=== PATIENT | male | born 1975 | race Caucasian/White ===

== ENCOUNTER 2019-12-16 03:55 | Emergency (ER) | payer BC, SELFPAY ==
[2019-12-16] VITALS (9 sets, daily range): BP systolic 108–153; BP diastolic 71–87; PULSE 90–100; RESP 20–24; TEMP 36.6; O2SAT 95–98
--- NOTE | ~2019-12-16 | CT_ITS ---
EXAMINATION: CT chest high resolution w con DATE: 12/16/2019 06:55 INDICATION: evaluate for pneumonia TECHNIQUE: Computed tomography (CT) of the chest was performed without intravenous contrast. Addition al 3D reconstructions utilizing coronal maximum intensity projection (MIP) were performed. Automated exposure control and iterative reconstruction technique were employed. The dose-length product was 19 9.72 mGy-cm. COMPARISON: None FINDINGS: Reticular and groundglass opacities in both lungs with peripheral and lower lung predominance. Subple ural emphysema versus honeycombing along the anterior aspect of the bilateral upper lobes. No pleural effusion or pneumothorax. Heart size is normal. No pericardial effusion. Small sliding-type hiatal h ernia. Thoracic aorta is normal in caliber with no dissection. No pathologically enlarged azygos lymp hadenopathy. Visualized upper abdomen is unremarkable. Mild thoracic spondylosis. IMPRESSION: 1. Peripheral and lower lung predominant irregular reticular and groundglass opacities. In the acute setting this could represent pneumonia, pulmonary edema, asymmetric pneumonia or hypersensitivity pne umonitis. Differential would also include chronic interstitial fibrosis in either usual interstitial pneumonia (UIP) or nonspecific interstitial pneumonia (NSIP) pattern. 2. Mild subpleural cystic lung disease at the anterior bilateral upper lobes which could represent ei ther mild emphysema or honeycombing related to UIP. 3. Small sliding-type hiatal hernia. Reviewed, dictated and finalized at location A. IMPRESSION: 1. Peripheral and lower lung predominant irregular reticular and groundglass op acities. In the acute setting this could represent pneumonia, pulmonary edema, asymmetric pneumonia or hypersensitivity pneumonitis. Differential would also i nclude chronic interstitial fibrosis in either usual interstitial pneumonia (UI P) or nonspecific interstitial pneumonia (NSIP) pattern. 2. Mild subpleural cystic lung disease at the anterior bilateral upper lobes wh ich could represent either mild emphysema or honeycombing related to UIP. 3. Small sliding-type hiatal hernia.
--- NOTE | ~2019-12-16 | XR_ITS ---
EXAMINATION: XR chest 1V portable DATE: 12/16/2019 05:36 INDICATION: Cough and shortness of breath TECHNIQUE: frontal view of the chest was obtained. COMPARISON: Chest and left rib radiographs dated 05/02/2016 FINDINGS: Mild reticular opacities at the bilateral lung bases. Unchanged more focal airspace opacity lingula l ikely atelectasis/scarring. No pleural effusion or pneumothorax. The cardiomediastinal silhouette is normal. IMPRESSION: 1. Mild bibasilar opacities which could represent pulmonary edema, atelectasis or pneumonia. Reviewed, dictated and finalized at location A.
[2019-12-16] MEDS: methylPREDNISolone SOD SUCC 125 MG VIAL 80 MG IV PUSH (04:22)
[2019-12-16] MEDS: IPRATROPIUM 0.5 MG/ALBUTEROL SULFATE 2.5 MG AMPUL.NEB 3 ML INHALATION ×2 (04:23→04:59)
--- NOTE | 2019-12-16 04:36 | ECG_ITS ---
Measurements Intervals [place] Rate: 94 P: 20 [place]: 205 QRS: 19 QRSD: 107 T: 2 QT: 363 QTc: 454 Interpretive Statements SINUS RHYTHM WITH FIRST DEGREE AV BLOCK ABNORMAL ECG Electronically Signed On 12-16-2019 8:53:25 CDT by Fredy Webster D.O.
--- NOTE | 2019-12-16 04:46 | ED.ASTHMA ---
HPI - Asthma General Chief Complaint: Asthma Stated Complaint: Cough/Asthma Time Seen by Provider: 12/16/19 07:13 Source: patient Mode of arrival: ambulatory Limitations: no limitations History of Present Illness HPI Narrative: 43 y.o. male with hx. of asthma c/o cough and wheezing for the past 2 weeks. Several hours ago these symptoms got much worse associated with coughing to the point of vomiting. He has had intermittent diarrhea x 2 weeks. There has been no known contact with Covid. Pt. is a nieto. He worked in a [employer] the week before last. He has been using his albuterol inhaler 3 - 4 x/day for 2 weeks. Related Data Current Asthma Therapy: inhaled bronchodilator Home Medications Medication Instructions Recorded Confirmed albuterol sulfate [ProAir HFA] 2 puff INHALATION PRN PRN 12/16/19 12/16/19 atorvastatin 20 mg PO DAILY 12/16/19 12/16/19 clonazepam 1 mg PO HS 12/16/19 12/16/19 hydrochlorothiazide 12.5 mg PO DAILY 12/16/19 12/16/19 losartan 50 mg PO DAILY 12/16/19 12/16/19 montelukast 10 mg PO DAILY 12/16/19 12/16/19 omeprazole 40 mg PO DAILY 12/16/19 12/16/19 Allergies Allergy/AdvReac Type Severity Reaction Status Date / Time No Known Allergies Allergy Verified 12/16/19 04:06 Review of Systems Constitutional: Constitutional: Denies body ache(s), Denies chills and Denies fever(s) Eyes: Eyes: Denies blurry vision ENT: Denies nasal discharge, Denies nasal obstruction and Denies sore throat Comments: Pt. states he has never been able to smell. NO change in taste of food. Cardiovascular: Cardiovascular: Denies chest pain at rest and Denies leg edema Respiratory: Respiratory: Reports no additional respiratory complaints Gastrointestinal: Gastrointestinal: Reports no additional gastrointestinal complaints Musculoskeletal: Musculoskeletal: Denies myalgias Neurologic: Reports headache(s) (this AM, #1/10) [facility] Past Medical History Medical History (Updated 12/16/19 @ 07:42 by Villa Neri MD) Asthma GERD (gastroesophageal reflux disease) Hyperlipidemia Hypertension Family History Family History (Updated 12/16/19 @ 04:59 by Loco Storey MD) Mother Diabetes mellitus Social History Social History (Updated 12/16/19 @ 04:47 by Loco Storey MD) Smoking status: Never smoker Alcohol intake: current Drinks per week: 25 Alcohol use details: 2 -3 drinks daily Exam Const: General: cooperative, awake and other (speaks in 5 word sentences; short of breath) Nutritional Appearance: average body habitus and well nourished HENMT: Face and sinus: sinuses nontender Mouth: Yes Normal oral and palatal mucosa present and Yes moist mucous membranes Eyes: General: appearance normal, both eyes and all related structures EOM: EOMs intact bilaterally Neck: Neck: no lymphadenopathy Chest: Chest palpation & inspection: normal inspection of the chest and other Resp: Effort & Inspection: no audible wheezes and Actively coughing (on arrival persistent coughing, couldn't catch breath. No coughing my exam) Auscultation: wheezes and diminished lung sounds (faint wheezes bases, otherwise no breath sounds) Cardio: Heart sounds: S1 normal heart sound present, S2 normal heart sound present and no murmurs GI: Inspection: normal to inspection and non-distended GI Palp: No abdominal tenderness Skin: General skin exam: normal color, no rashes or lesions noted and other (brisk capillary refill) Rashes: no rashes Extrem: General: normal to inspection and capillary refill normal Other: no pedal edema Course Course Emergency Course: After 80 mg of methylprednisolone and #2 duoneb treatment patient no longer feeling SOB. RR of 18, not labored. CBC shows eosinophilia suggesting allergy related asthma exacerbation. Sign off to Dr. Neri at 7 AM. Vital Signs Vital signs: Vital Signs Temperature 36.6 C 12/16/19 04:07 Pulse Rate 95 12/16/19 04:07 Respiratory Rate 24 H 11/18
[2019-12-16 05:12] LABS: Hematocrit 46.6 % (40.0-54.0); Hemoglobin 15.1 g/dL (14.0-18.0); Mean Corpuscular HGB Conc 32.4 g/dL (32.0-36.0); Mean Corpuscular Hemoglobin 28.2 pg (27.0-31.0); Mean Corpuscular Volume 86.9 fL (78.0-102.0); Mean Platelet Volume 10.6 fl (8.7-11.0); Platelet Count Result 282 K/mm3 (150-420); Red Blood Count 5.36 M/mm3 (4.70-6.10); White Blood Count 10.1 K/mm3 (4.8-10.8)
[2019-12-16] MEDS: ONDANSETRON INJ 4 MG/2 ML VIAL IV PUSH (05:13)
[2019-12-16 05:32] LABS: Band Neutrophils Percent 0 % (0-6); Basophils Percent Manual 2 % (0-1); Eosinophils Absolute Manual 1.11 K/mm3 (0.02-0.5); Eosinophils Percent Manual 11 % (1-6); Lymphocytes Absolute Manual 1.81 K/mm3 (1.1-4.5); Lymphocytes Percent Manual 18 % (18-44); Monocytes Absolute Manual 1.11 K/mm3 (0.1-0.90); Monocytes Percent Manual 11 % (3-9); Neutrophils Absolute Manual 5.85 K/mm3 (1.3-6.7); Neutrophils Percent Manual 58 % (46-73); Platelet Estimate Adequate (Adequate); Total Cells Counted 100
[2019-12-16 05:42] LABS: Alanine Aminotransferase 41 U/L (16-63); Albumin Level 3.6 g/dL (3.4-5.0); Alkaline Phosphatase 60 U/L (46-116); Anion Gap 9 mmol/L (8-16); Aspartate Amino Transferase 30 U/L (15-37); Bilirubin,Total 0.9 mg/dL (0.00-1.00); Blood Urea Nitrogen 21 mg/dL (7-18); Calcium 8.6 mg/dL (8.5-10.1); Carbon Dioxide 26 mmol/L (21-32); Chloride 105 mmol/L (98-108); Estimated CRCL calculation 70 ml/min; Estimated Glomerular Filt Rate > 60; Ferritin 153 ng/mL (26-388); Glucose 134 mg/dL (70-99); Osmolality Calculated 295 mOsm/kg (285-295); Potassium 3.8 mmol/L (3.5-5.1); Sodium 140 mmol/L (136-145); Troponin I < 0.02 ng/mL (0.00-0.056)
[2019-12-16 05:51] LABS: Lactic Acid 0.9 mmol/L (0.4-2.0)
[2019-12-16 07:13] LABS: CRP 0.6 mg/dL (0.0-0.9)
[2019-12-16 08:03] LABS: Erythrocyte Sedimentation Rate 8 mm/hr (0-15)
[2019-12-17 13:07] LABS: SARS-CoV-2 RNA PCR Negative
== END 2019-12-16 07:54 | disposition home or self-care (01) ==
PROVIDERS: Family Medicine; Emergency Provider Emergency Medicine; PCP Internal Medicine
DX: J18.9 Pneumonia, unspecified organism (principal); J45.909 Unspecified asthma, uncomplicated
CPT/HCPCS: 36415; 71045; 71260; 80053; 82728; 83605; 84484; 85025; 85652; 86140; 87040; 87635; 93005; 94640; 96374; 96375; 99283; 99284; C9803; J2405; J2930; Q9965; U0003

== ENCOUNTER 2022-01-21 23:13 | Observation (INO) | payer BC, SELFPAY ==
[2022-01-21] VITALS (9 sets, daily range): BP systolic 104–137; BP diastolic 49–106; PULSE 82–106; RESP 22–28; TEMP 36.9; O2SAT 93–99
--- NOTE | ~2022-01-21 | XR_ITS ---
EXAMINATION: XR chest 1V portable INDICATION: Shortness of breath TECHNIQUE: Portable AP chest at 1137 hours COMPARISON: None available FINDINGS: The lungs are free of acute opacities. No pleural effusion or pneumothorax. The cardiomedia stinal silhouette is normal. The visualized bones and soft tissues are unremarkable. IMPRESSION: 1. No acute cardiopulmonary abnormality. Reviewed, dictated and finalized at location A.
[2022-01-21] MEDS: IPRATROPIUM 0.5 MG/ALBUTEROL SULFATE 2.5 MG AMPUL.NEB 3 ML INHALATION (23:20)
--- NOTE | 2022-01-21 23:20 | ED.SOB ---
HPI - SOB/Dyspnea General Chief Complaint: Shortness of Breath/Dyspnea Stated Complaint: Ashma Source: patient Mode of arrival: ambulatory Limitations: no limitations History of Present Illness HPI Narrative: this is a 46-year-old gentleman that has a history of asthma presents with some asthma attack current respiratory rate of 25 and O2 sats of 96% on room air patient is a nonsmoker and has been working in the [employer] over the last week and does have inhalers at home but symptoms progressed overnight. There is nonproductive cough with some mild audible wheezing with no fever chills no chest tightness no abdominal pain no nasal congestion no nausea vomiting. MD elicited complaint: shortness of breath and asthma attack Pertinent past history: asthma Onset (ago): hour(s) Severity: moderate Exacerbating factors: exertion, coughing and inspiration Relieving factors: rest, bronchodilators and upright position Known history of: asthma Associated symptoms: cough and wheezing Related Data Home Medications Medication Instructions Recorded Confirmed albuterol sulfate 90 mcg/actuation 90 mcg inhalation PRN 01/21/22 01/21/22 aerosol inhaler atorvastatin 40 mg tablet 40 mg PO DAILY 01/21/22 01/21/22 clonazepam 1 mg tablet 1 mg PO DAILY 01/21/22 01/21/22 hydrochlorothiazide 12.5 mg tablet 12.5 mg PO DAILY 01/21/22 01/21/22 losartan 50 mg tablet 50 mg PO DAILY 01/21/22 01/21/22 montelukast 10 mg tablet 10 mg PO DAILY 01/21/22 01/21/22 ropinirole 2 mg tablet 2 mg PO DAILY 01/21/22 01/21/22 Allergies Allergy/AdvReac Type Severity Reaction Status Date / Time No Known Allergies Allergy Verified 01/21/22 23:17 Review of Systems Review of Systems: All systems reviewed & are unremarkable except as noted in HPI and below PMFSH Past Medical History Medical History Asthma Exam Const: General: no acute distress Nutritional Appearance: well nourished Orientation/consciousness: patient oriented x3 Limitations: no limitations HENMT: Head: normal to inspection Face/Nose/Sinus: Normal external nose present Face and sinus: normal facial exam Mouth: Yes Normal oral and palatal mucosa present Eyes: Conjunctivae: conjunctivae normal Pupils: Equal, round and reactive pupils present Neck: Neck: normal visual inspection Chest: Chest palpation & inspection: normal inspection of the chest Resp: Effort & Inspection: tachypneic Auscultation: wheezes and diminished lung sounds Cardio: Rate: regular rate Rhythm: regular rhythm GI: GI Palp: Yes Soft to palpation Auscultation: normal bowel sounds Back/Spine/Pelvis: Back: no CVA tenderness Skin: General skin exam: normal color Rashes: no rashes Neuro: General: patient oriented x3 Cranial nerves: Yes Nystagmus not present Extrem: General: normal to inspection Psych: Mental Status: mental status grossly normal Affect: normal affect Course Course Emergency Course: patient did well after receiving DuoNebs, IV Solu-Medrol and 2g magnesium. Initially respiratory rate around 24 currently at 18 labs reviewed with patient and chest x-ray, patient felt a little queasy after the blood draws and blood pressure down to 104/66 receiving IV fluids. Labs and chest x-ray reviewed his blood gases showed that he had normal blood gases with a pH of 7.37 pCO2 of 41 O2 of 72 with a bicarb of 23.5. Patient is resting comfortably currently and advised that we will admit under observation and to continue DuoNebs along with some IV Solu-Medrol. Critical Care Time Critical Care Time Critical Care Time: No Discharge Plan Discharge Clinical Impression: Asthma with exacerbation Qualifiers: Asthma severity: moderate Asthma persistence: unspecified Qualified Code(s): J45.901 - Unspecified asthma with (acute) exacerbation Patient Disposition: Acute Care Hospital Condition: Guarded Prognosis Additional Instructions: Disposition acut
--- NOTE | 2022-01-21 23:23 | ECG_ITS ---
Measurements Intervals [place] Rate: 69 P: 7 [place]: 194 QRS: 50 QRSD: 104 T: 23 QT: 413 QTc: 445 Interpretive Statements SINUS RHYTHM WITHIN NORMAL LIMIT ] NO PREVIOUS ECG AVAILABLE FOR COMPARISON Electronically Signed On 01-22-2022 14:00:50 CDT by Villa Osorio M.D.
[2022-01-21] MEDS: MAGNESIUM SULF 2 GM/WATER 50ML 2 GM/50 ML BAG IVPB (23:28)
[2022-01-21] MEDS: methylPREDNISolone SOD SUCC 125 MG VIAL IV PUSH (23:30)
[2022-01-21 23:39] LABS: Base Excess ABG -1.8 mmol/L (0-2); HCO3 ABG 23.5 mmol/L (23-29); Oxygen Content ABG 19.5 %vol (16.0-22.0); Oxygen Saturation ABG 94.6 % (95-97); Oxyhemoglobin 93.9 % (94-100); PCO2 ABG 41.7 mmHg (35-45); PO2 ABG 72.1 mmHg (80-90); Total Hemoglobin 14.8 g/dL (12.0-18.0); pH ABG 7.37 (7.35-7.45)
[2022-01-21 23:42] LABS: Device ROOM AIR; Modified Allen's Test Pass; Site Drawn LEFT RADIAL
[2022-01-21 23:45] LABS: Basophils Percent Auto 1.9 % (0.0-1.0); Eosinophils Absolute Auto 1.04 K/mm3 (0.02-0.50); Eosinophils Percent Auto 9.9 % (1.0-6.0); Hematocrit 42.8 % (40.0-54.0); Immature Granulocyte Absolute 0.03 K/mm3 (0.00-0.00); Immature Granulocyte Percent A 0.3 % (0.0-0.0); Lymphocytes Absolute Auto 2.18 K/mm3 (1.10-4.50); Lymphocytes Percent Auto 20.8 % (18.0-42.0); Mean Corpuscular HGB Conc 32.7 g/dL (32.0-36.0); Mean Corpuscular Hemoglobin 27.9 pg (27.0-31.0); Mean Corpuscular Volume 85.3 fL (78.0-102.0); Mean Platelet Volume 10.3 fl (8.7-11.0); Monocytes Percent Auto 13.4 % (2.0-11.0); Neutrophils Absolute Auto 5.6 K/mm3 (1.7-7.2); Neutrophils Percent Auto 53.7 % (50.0-70.0); Platelet Count Result 314 K/mm3 (150-420); Red Blood Count 5.02 M/mm3 (4.70-6.10); Red Cell Distribution Width 12.9 % (11.6-14.4); White Blood Count 10.5 K/mm3 (4.8-10.8)
[2022-01-21 23:59] LABS: Alanine Aminotransferase 34 U/L (16-63); Albumin Level 3.6 g/dL (3.4-5.0); Alkaline Phosphatase 56 U/L (46-116); Anion Gap 6 mmol/L (8-16); Aspartate Amino Transferase 25 U/L (15-37); Bilirubin,Total 0.7 mg/dL (0.00-1.00); Blood Urea Nitrogen 22 mg/dL (7-18); Calcium 8.8 mg/dL (8.5-10.1); Carbon Dioxide 27 mmol/L (21-32); Chloride 102 mmol/L (98-108); Estimated Glomerular Filt Rate > 60; Glucose 95 mg/dL (70-99); Osmolality Calculated 283 mOsm/kg (285-295); Potassium 3.6 mmol/L (3.5-5.1); Sodium 135 mmol/L (136-145)
[2022-01-22] VITALS (20 sets, daily range): BP systolic 94–141; BP diastolic 62–89; PULSE 85–120; RESP 16–22; TEMP 36.3–36.7; O2SAT 90–98; BMI 27.8
[2022-01-22 00:16] LABS: SARS-CoV-2 RNA PCR Negative (Negative)
[2022-01-22] MEDS: SODIUM CHLORIDE 0.9% IV 1,000 ML 999 ML IV CONT (00:36)
--- NOTE | 2022-01-22 01:47 | PC.NURSE ---
Kerry admitted to room 202 from the ER, Is alert and oriented times 4, denies pain.
[2022-01-22] MEDS: SODIUM CHLORIDE 0.9% IV 1,000 ML 100 ML IV CONT (02:35)
[2022-01-22 05:15] LABS: Basophils Percent Auto 0.8 % (0.0-1.0); Eosinophils Absolute Auto 0.02 K/mm3 (0.02-0.50); Eosinophils Percent Auto 0.2 % (1.0-6.0); Hematocrit 44.1 % (40.0-54.0); Hemoglobin 14.2 g/dL (14.0-18.0); Immature Granulocyte Absolute 0.04 K/mm3 (0.00-0.00); Immature Granulocyte Percent A 0.3 % (0.0-0.0); Lymphocytes Absolute Auto 0.51 K/mm3 (1.10-4.50); Lymphocytes Percent Auto 4.1 % (18.0-42.0); Mean Corpuscular HGB Conc 32.2 g/dL (32.0-36.0); Mean Corpuscular Hemoglobin 27.6 pg (27.0-31.0); Mean Corpuscular Volume 85.6 fL (78.0-102.0); Mean Platelet Volume 10.4 fl (8.7-11.0); Monocytes Absolute Auto 0.09 K/mm3 (0.10-0.90); Monocytes Percent Auto 0.7 % (2.0-11.0); Neutrophils Absolute Auto 11.7 K/mm3 (1.7-7.2); Neutrophils Percent Auto 93.9 % (50.0-70.0); Platelet Count Result 296 K/mm3 (150-420); Red Blood Count 5.15 M/mm3 (4.70-6.10); Red Cell Distribution Width 12.9 % (11.6-14.4); White Blood Count 12.4 K/mm3 (4.8-10.8)
[2022-01-22] MEDS: methylPREDNISolone SOD SUCC 40 MG VIAL IV PUSH (05:15)
[2022-01-22 05:43] LABS: Alanine Aminotransferase 33 U/L (16-63); Albumin Level 3.4 g/dL (3.4-5.0); Alkaline Phosphatase 58 U/L (46-116); Anion Gap 9 mmol/L (8-16); Aspartate Amino Transferase 23 U/L (15-37); Bilirubin,Total 0.7 mg/dL (0.00-1.00); Blood Urea Nitrogen 19 mg/dL (7-18); Calcium 8.5 mg/dL (8.5-10.1); Carbon Dioxide 25 mmol/L (21-32); Chloride 103 mmol/L (98-108); Estimated CRCL calculation 72 ml/min; Estimated Glomerular Filt Rate > 60; Glucose 111 mg/dL (70-99); Magnesium 2.3 mg/dL (1.8-2.4); Osmolality Calculated 287 mOsm/kg (285-295); Potassium 4.2 mmol/L (3.5-5.1); Sodium 137 mmol/L (136-145); Total Protein 7.8 g/dL (6.4-8.2)
[2022-01-22] MEDS: IPRATROPIUM 0.5 MG/ALBUTEROL SULFATE 2.5 MG AMPUL.NEB 3 ML INHALATION (05:57)
[2022-01-22] MEDS: hydroCHLOROthiazide 12.5 MG CAPSULE PO (08:42)
[2022-01-22] MEDS: rOPINIRole HCL 1 MG TABLET 2 MG PO (08:42)
[2022-01-22] MEDS: LOSARTAN POTASSIUM 50 MG TABLET PO (08:43)
[2022-01-22] MEDS: ATORVASTATIN 40 MG TABLET PO (08:43)
[2022-01-22] MEDS: MONTELUKAST SODIUM 10 MG TABLET PO (08:43)
--- NOTE | 2022-01-22 09:46 | PM.SD2 ---
Same Day Admit/Disch: HPI History of Present Illness Chief complaint: Ashma Narrative: Andrew Lawson is a 46 year old male present emergency department with complaints of shortness of breath. Patient has a past medical history of asthma. According to the patient for the last couple of weeks he has been experiencing increased shortness of breath and has been using his rescue inhaler 4 or more times a day. He also notes that he has been coughing so hard that he has been vomiting. patient is a nieto he has been around a lot of environmental triggers. Vital signs 141/82, 16, 97.4, 97% on room air, heart rate of 120 due to steroid use. WBCs 10.5, hemoglobin 14.0, hematocrit 42.8, platelets 296, ABG pH 7.37, CO2 41.7, O2 42.1, bicarb 23.5, sodium 135, potassium 3.6, BUN 22, creatinine 1.21, glucose 95, COVID-negative, chest x-ray unremarkable, EKG sinus rhythm, patient was discharged home with a nebulizer and duo solution Medrol pack, Zosyn and Tessalon Perles. Discharge instructions reviewed with patient, as well as provided in writing per nursing staff. The instructions also include specific and strict return/GO TO THE ER as well as f/u information. All questions have been answered, and the patient and/or family deny any further questions with discharge and discharge plan. The patient denies, CP, palpitation, extremity numbness, lightheadedness, dizziness, constipation, diarrhea, chills, or fever. Patient notes that his shortness of breath has improved he still continues to have a cough with improvement. [facility] Past Medical History Medical History Asthma Social History Social History Smoking status: Never smoker Second hand tobacco smoke exposure: No Alcohol intake: current Substance use: never Spiritual care concerns: No Same Day Admit/Disch: Med Pre-admit Medications Home Medications Medication Instructions Recorded Confirmed Type atorvastatin 40 mg tablet 40 mg PO DAILY 01/21/22 01/21/22 History clonazepam 1 mg tablet 1 mg PO DAILY 01/21/22 01/21/22 History hydrochlorothiazide 12.5 mg tablet 12.5 mg PO DAILY 01/21/22 01/21/22 History losartan 50 mg tablet 50 mg PO DAILY 01/21/22 01/21/22 History montelukast 10 mg tablet 10 mg PO DAILY 01/21/22 01/21/22 History ropinirole 2 mg tablet 2 mg PO DAILY 01/21/22 01/21/22 History albuterol sulfate 90 mcg/actuation 90 mcg inhalation PRN #6.7 grams 01/22/22 Rx aerosol inhaler benzonatate 200 mg capsule 200 mg PO BID PRN cough #30 caps 01/22/22 Rx ipratropium 0.5 mg-albuterol 3 mg 3 ml inhalation Q4H PRN shortness 01/22/22 Rx (2.5 mg base)/3 mL nebulization of breath or wheezing #180 mL soln methylprednisolone 4 mg tablets in 4 mg PO DAILY #21 ea 01/22/22 Rx a dose pack (Medrol (Bhaskar)) nebulizers #1 ea 01/22/22 Rx ondansetron 4 mg disintegrating 4 mg PO Q8H PRN nausea and 01/22/22 Rx tablet vomiting #30 tabs Exam Narrative: GENERAL: This is a well-nourished, well-developed patient, in no apparent distress. HEAD: normocephalic, atraumatic. EYES: PERRL. Sclera clear/white. Vision is grossly intact. EARS: External ears normal, auditory canals clear and without drainage, TMs normal without perforation. Hearing grossly intact. NOSE: External nose normal with no obvious nasal discharge, nares without redness, no rhinorrhea. THROAT: Mucous membranes moist, posterior pharynx clear. NECK: Neck supple, non-tender without lymphadenopathy, masses or thyromegaly. CARDIOVASCULAR: Regular rate and rhythm without murmurs, gallops, or rubs. RESPIRATORY: Diminished breath sounds no labored breathing GASTROINTESTINAL: Abdomen soft, non-tender, nondistended. Bowel sounds are active. No hepato-splenomegaly, or palpable masses. No guarding. SKIN: warm, intact with no suspicious lesions or rash, good texture and turgor. NEURO: awake, alert, and oriented to person,
--- NOTE | 2022-01-22 11:00 | PC.NURSE ---
Discharge instructions gone over with patient and patient's girlfriend. Both voiced understanding. Patient left unit in w/c with nurse and girlfriend accompanying him. Personal belongings sent home with patient. Patient left facility in privately owned vehicle.
--- NOTE | 2022-01-27 09:42 | PC.NURSE ---
Unable to contact for discharge call back.
== END 2022-01-22 11:00 | disposition home or self-care (01) ==
LOC: CHSED 01-22 00:41 → CHS2ND 01-22 02:58
PROVIDERS: Admitting Provider Internal Medicine; Emergency Provider Emergency Medicine; PCP Internal Medicine; Visit Provider Internal Medicine
DX: J45.901 Unspecified asthma with (acute) exacerbation (principal); Z20.822 Contact with and (suspected) exposure to COVID-19
CPT/HCPCS: 36415; 36600; 71045; 80053; 82805; 83735; 85025; 93005; 94640; 96361; 96365; 96375; 96376; 99285; A9270; C9803; G0378; J2920; J2930; J3475; J7030; U0003; U0005

== ENCOUNTER 2022-07-15 21:37 | Emergency (ER) | payer BC, SELFPAY ==
--- NOTE | ~2022-07-15 | XR_ITS ---
EXAMINATION: XR chest 2V DATE: 07/15/2022 22:34 INDICATION: Productive cough TECHNIQUE: PA and lateral views of the chest are obtained. COMPARISON: 01/21/2022 FINDINGS: There are minimal airspace opacities of the lung bases. No pleural effusion or pneumothorax . The cardiomediastinal silhouette is normal. There is mild thoracic spondylosis. IMPRESSION: 1. Minimal bibasilar airspace opacity, consistent with atelectasis versus pneumonia. Reviewed, dictated and finalized at location F. IMPRESSION: 1. Minimal bibasilar airspace opacity, consistent with atelectasis versus pneum onia.
[2022-07-15 21:41] VITALS: BP 143/88; PULSE 115; RESP 18; TEMP 37.2; O2SAT 95
[2022-07-15 21:48] VITALS: O2SAT 93
--- NOTE | 2022-07-15 21:52 | ED.SOB ---
HPI - SOB/Dyspnea General Chief Complaint: Shortness of Breath/Dyspnea Stated Complaint: Coughing Blood Source: patient and family Mode of arrival: ambulatory History of Present Illness HPI Narrative: this is a 46-year-old gentleman with a history of asthma, for the last 10 days has been having cough with congestion does have a nebulizer at home that he has been using but this afternoon had quite a bit of coughing and coughed up some blood streaked sputum. Otherwise no fever or chills his vitals are stable heart rate is currently about 115 O2 sats about 93% on room air, there is no nausea vomiting no abdominal pain no chest pain, patient is a nonsmoker. MD elicited complaint: shortness of breath and cough Pertinent past history: asthma Onset (ago): day(s) Context: recent illness Severity: moderate Exacerbating factors: coughing and inspiration Known history of: asthma Related Data Home Medications Medication Instructions Recorded Confirmed atorvastatin 40 mg tablet 40 mg PO DAILY 01/21/22 07/15/22 clonazepam 1 mg tablet 1 mg PO DAILY 01/21/22 07/15/22 hydrochlorothiazide 12.5 mg tablet 12.5 mg PO DAILY 01/21/22 07/15/22 losartan 50 mg tablet 50 mg PO DAILY 01/21/22 07/15/22 montelukast 10 mg tablet 10 mg PO DAILY 01/21/22 07/15/22 ropinirole 2 mg tablet 2 mg PO DAILY 01/21/22 07/15/22 fluticasone furoate 200 1 inh inhalation DAILY 07/15/22 07/15/22 mcg-vilanterol 25 mcg/dose inhalation powder (Breo Ellipta) Allergies Allergy/AdvReac Type Severity Reaction Status Date / Time No Known Allergies Allergy Verified 01/21/22 23:17 Review of Systems Review of Systems: All systems reviewed & are unremarkable except as noted in HPI and below PMFSH Past Medical History Medical History Asthma Social History Social History Smoking status: Never smoker Second hand tobacco smoke exposure: No Alcohol intake: current Substance use: never Spiritual care concerns: No Exam Const: General: no acute distress Nutritional Appearance: well nourished Orientation/consciousness: patient oriented x3 Limitations: no limitations HENMT: Head: normal to inspection Face and sinus: normal facial exam Mouth: Yes Normal oral and palatal mucosa present Throat: posterior oropharynx normal Eyes: Conjunctivae: conjunctivae normal EOM: EOMs intact bilaterally Direct Ophthalmoscopy: no photophobia Neck: Neck: normal visual inspection and no lymphadenopathy Chest: Chest palpation & inspection: normal inspection of the chest Resp: Effort & Inspection: normal respiratory effort Auscultation: wheezes and diminished lung sounds Cardio: Rate: tachycardic Rhythm: regular rhythm GI: GI Palp: Yes Soft to palpation Back/Spine/Pelvis: Back: no CVA tenderness Skin: General skin exam: normal color Rashes: no rashes Wounds: no wounds Neuro: General: patient oriented x3 and moves all extremities Extrem: General: normal to inspection and no clubbing, cyanosis or edema Psych: Mental Status: mental status grossly normal Affect: normal affect Attitude: cooperative Course Course Emergency Course: Patient started on IV and had IV Solu-Medrol 125mg, received a DuoNeb, with IV magnesium a chest x-ray performed and reviewed with patient and family, patient had blood work performed and reviewed. Vital Signs Vital signs: Vital Signs Temperature 37.2 C 07/15/22 21:41 Pulse Rate 115 H 07/15/22 21:41 Respiratory Rate 18 07/15/22 21:41 Blood Pressure 143/88 H 07/15/22 21:41 Pulse Oximetry 95 07/15/22 21:41 Oxygen Delivery Room Air 07/15/22 21:41 Temperature 37.2 C 07/15/22 21:41 Pulse Rate 115 H 07/15/22 21:41 Respiratory Rate 18 07/15/22 21:41 Blood Pressure 143/88 H 07/15/22 21:41 Pulse Oximetry 93 07/15/22 21:48 Oxygen Delivery Room Air 07/15/22 21:48 Critical Care T
[2022-07-15] MEDS: methylPREDNISolone SOD SUCC 125 MG VIAL IV PUSH (22:03)
[2022-07-15] MEDS: MAGNESIUM SULF 2 GM/WATER 50ML 2 GM/50 ML BAG IVPB (22:04)
[2022-07-15] MEDS: SODIUM CHLORIDE 0.9% IV 1,000 ML 999 ML IV CONT (22:06)
[2022-07-15 22:08] LABS: Base Excess ABG -0.6 mmol/L (0-2); HCO3 ABG 24.2 mmol/L (23-29); Oxygen Content ABG 20.4 %vol (16.0-22.0); Oxygen Saturation ABG 95.9 % (95-97); PCO2 ABG 40.5 mmHg (35-45); PO2 ABG 77.3 mmHg (80-90); Total Hemoglobin 15.3 g/dL (12.0-18.0); pH ABG 7.39 (7.35-7.45)
[2022-07-15 22:10] LABS: Basophils Absolute Auto 0.14 K/mm3 (0.00-0.10); Basophils Percent Auto 1.7 % (0.0-1.0); Eosinophils Percent Auto 9.6 % (1.0-6.0); Hematocrit 44.2 % (40.0-54.0); Hemoglobin 14.7 g/dL (14.0-18.0); Immature Granulocyte Absolute 0.02 K/mm3 (0.00-0.00); Immature Granulocyte Percent A 0.2 % (0.0-0.0); Lymphocytes Absolute Auto 1.47 K/mm3 (1.10-4.50); Lymphocytes Percent Auto 17.6 % (18.0-42.0); Mean Corpuscular HGB Conc 33.3 g/dL (32.0-36.0); Mean Corpuscular Hemoglobin 28.4 pg (27.0-31.0); Mean Corpuscular Volume 85.5 fL (78.0-102.0); Mean Platelet Volume 10.2 fl (8.7-11.0); Monocytes Absolute Auto 1.05 K/mm3 (0.10-0.90); Monocytes Percent Auto 12.6 % (2.0-11.0); Neutrophils Absolute Auto 4.9 K/mm3 (1.7-7.2); Neutrophils Percent Auto 58.3 % (50.0-70.0); Platelet Count Result 267 K/mm3 (150-420); Red Blood Count 5.17 M/mm3 (4.70-6.10); Red Cell Distribution Width 13.4 % (11.6-14.4); White Blood Count 8.3 K/mm3 (4.8-10.8)
[2022-07-15] MEDS: IPRATROPIUM 0.5 MG/ALBUTEROL SULFATE 2.5 MG AMPUL.NEB 3 ML INHALATION (22:10)
[2022-07-15 22:11] VITALS: PULSE 98; RESP 20; O2SAT 94
[2022-07-15 22:12] LABS: Device ROOM AIR; Modified Allen's Test Pass; Site Drawn LEFT RADIAL
[2022-07-15 22:24] VITALS: PULSE 88; RESP 20; O2SAT 98
[2022-07-15 22:24] LABS: D Dimer 0.28 mg/L (0.19-0.50)
[2022-07-15 22:29] LABS: Alanine Aminotransferase 25 U/L (16-63); Albumin Level 3.2 g/dL (3.4-5.0); Alkaline Phosphatase 78 U/L (46-116); Anion Gap 11 mmol/L (8-16); Aspartate Amino Transferase 20 U/L (15-37); Bilirubin,Total 0.3 mg/dL (0.00-1.00); Blood Urea Nitrogen 14 mg/dL (7-18); Calcium 8.4 mg/dL (8.5-10.1); Carbon Dioxide 25 mmol/L (21-32); Chloride 105 mmol/L (98-108); Estimated CRCL calculation 68 ml/min; Estimated Glomerular Filt Rate > 60; Glucose 152 mg/dL (70-99); Magnesium 1.5 mg/dL (1.8-2.4); Osmolality Calculated 295 mOsm/kg (285-295); Potassium 3.5 mmol/L (3.5-5.1); Sodium 141 mmol/L (136-145); Troponin I 10.1 ng/L (0.00-60.4)
[2022-07-15 22:47] LABS: Influenza A QL RT-PCR Negative (Negative); Influenza B QL RT-PCR Negative (Negative); SARS-CoV-2 RNA PCR Negative (Negative)
[2022-07-15 23:10] LABS: RSV RNA, RT-PCR Negative (Negative)
[2022-07-15] MEDS: AZITHROMYCIN 250 MG TABLET 1000 MG PO (23:28)
[2022-07-15 23:30] VITALS: BP 127/66; PULSE 85; RESP 20; TEMP 37.1; O2SAT 97
--- NOTE | 2022-07-22 12:05 | PC.NURSE ---
FINAL BLOOD CULTURE RESULT X 1: NO GROWTH AFTER 5 DAYS. NO ACTION NEEDED.
--- NOTE | 2022-07-24 12:55 | PC.NURSE ---
final blood culture report reviewed. no growth after 5 days. no change in plan of care
== END 2022-07-15 23:37 | disposition home or self-care (01) ==
PROVIDERS: Emergency Provider Emergency Medicine; PCP Internal Medicine
DX: J45.909 Unspecified asthma, uncomplicated (principal); Z79.51 Long term (current) use of inhaled steroids; Z20.822 Contact with and (suspected) exposure to COVID-19
CPT/HCPCS: 36415; 36600; 71046; 80053; 82805; 83735; 84484; 85025; 85380; 87040; 87637; 94640; 96365; 96375; 99284; A9270; J2930; J3475; J7030

== ENCOUNTER 2022-09-13 18:05 | Observation (INO) | payer BC, SELFPAY ==
[2022-09-13] VITALS (13 sets, daily range): BP systolic 135–156; BP diastolic 88–91; PULSE 93–126; RESP 20–22; TEMP 37–37.3; O2SAT 92–97
--- NOTE | ~2022-09-13 | XR_ITS ---
Portable chest x-ray Comparison: 09/13/2022 Clinical History: Leukocytosis Findings: Lungs are clear, without focal consolidation or pleural effusion. Cardiomediastinal silho uette is stable. Bones and soft tissues are unremarkable. Impression: Normal chest. Reviewed, dictated and finalized at [facility]. Impression: Normal chest.
--- NOTE | ~2022-09-13 | XR_ITS ---
EXAMINATION: XR chest 1V portable DATE: 09/13/2022 18:21 INDICATION: 3 weeks of shortness of breath TECHNIQUE: frontal view of the chest was obtained. COMPARISON: Chest radiograph dated 07/15/2022 FINDINGS: Mild streaky bibasilar atelectasis. No other airspace opacities, pulmonary edema, pleural effusion or pneumothorax. The cardiomediastinal silhouette is normal. IMPRESSION: 1. Mild streaky bibasilar atelectasis. Reviewed, dictated and finalized at location A.
--- NOTE | 2022-09-13 18:10 | ECG_ITS ---
Measurements Intervals [place] Rate: 96 P: 62 [place]: 180 QRS: 71 QRSD: 101 T: 63 QT: 366 QTc: 464 Interpretive Statements SINUS RHYTHM POSSIBLE LEFT ATRIAL ENLARGEMENT BASELINE ARTIFACT- I, II, III, AVR, AVL, AVF BORDERLINE ECG COMPARED TO ECG 12/16/2019 04:50:44 NO SIGNIFICANT CHANGES Electronically Signed On 09-13-2022 21:24:39 CDT by Fredy Webster D.O.
--- NOTE | 2022-09-13 18:14 | ED.GENADULT ---
HPI - General Adult General Chief complaint: Asthma Stated complaint: SOB Time Seen by Provider: 09/13/22 18:08 History of Present Illness HPI narrative: Andrew is a 46M with a PMH of asthma that presented to the ED with dyspnea. It started 2 weeks ago and has gradually been getting worse but became much worse today. It is accompanied by tightness in his chest and coughing but no fevers, chills, nausea or vomiting. Related Data Home Medications Medication Instructions Recorded Confirmed clonazepam 1 mg tablet 1 mg PO HS 12/16/19 09/13/22 omeprazole 40 mg capsule,delayed 40 mg PO DAILY 12/16/19 09/13/22 release Allergies Allergy/AdvReac Type Severity Reaction Status Date / Time No Known Allergies Allergy Verified 09/13/22 18:09 Review of Systems Review of Systems: All systems reviewed & are unremarkable except as noted in HPI and below PMFSH Past Medical History Medical History (Updated 09/16/22 @ 11:32 by Jennifer Agosto APRN) Asthma GERD (gastroesophageal reflux disease) Hyperlipidemia Hypertension Tachycardia Family History Family History Mother Diabetes mellitus Social History Social History Smoking status: Never smoker Second hand tobacco smoke exposure: No Alcohol intake: current Drinks per week: 36 Alcohol use details: 2 -3 drinks daily Substance use: never Lack of Transportation: No Lack of Food: Never True Current Housing: I Have Housing Concerned About Future Housing: No Difficulty Paying Gas/Electric Bills: No Difficulty Paying for Meds: No Currently Unemployed: No Education: High School Diploma/GED Difficulty w/ Childcare or Family Care: No Spiritual care concerns: No Exam Const: General: healthy appearing and no acute distress Nutritional Appearance: well nourished Orientation/consciousness: patient oriented x3 Limitations: no limitations HENMT: Head: normal to inspection Ears: external ears normal Face/Nose/Sinus: Normal external nose present Face and sinus: normal facial exam Eyes: Conjunctivae: conjunctivae normal Pupils: Equal, round and reactive pupils present EOM: EOMs intact bilaterally Neck: Neck: normal visual inspection Chest: Chest palpation & inspection: normal inspection of the chest Resp: Effort & Inspection: labored, retractions, tachypneic and uses accessory muscles Other: Severe diffuse wheezing and very prolonged expiratory phase Cardio: Rate: regular rate Rhythm: regular rhythm GI: Inspection: non-distended GI Palp: Yes Soft to palpation and No Tenderness to palpation present (GI) : General: Yes bladder normal to palpation Back/Spine/Pelvis: Back: no CVA tenderness Skin: General skin exam: normal color Rashes: no rashes Neuro: General: patient oriented x3 and moves all extremities Cranial nerves: Yes Nystagmus not present Extrem: General: normal to inspection Psych: Mental Status: mental status grossly normal Course Course Emergency Course: Ordered CXR, EKG, duoneb, labs, and methyl prednisolone EKG showed sinus tachycardia with a rate of 96, no ectopy, or ST elevation/depression Labs largely unremarkable. EXAMINATION: XR chest 1V portable DATE: 09/13/2022 18:21 INDICATION: 3 weeks of shortness of breath TECHNIQUE: frontal view of the chest was obtained. COMPARISON: Chest radiograph dated 07/15/2022 FINDINGS: Mild streaky bibasilar atelectasis. No other airspace opacities, pulmonary edema, pleural effusion or pneumothorax. The cardiomediastinal silhouette is normal. IMPRESSION: 1. Mild streaky bibasilar atelectasis. Given 1 hour long treatment of albuterol. Despite this he continues to have lots of wheezing and coughing. Discussed admission with Aleksey at 2030 and she accepted. Vital Signs Vital signs: Vital Signs Oxygen Delivery Room Air
[2022-09-13] MEDS: IPRATROPIUM 0.5 MG/ALBUTEROL SULFATE 2.5 MG AMPUL.NEB 3 ML INHALATION (18:19)
[2022-09-13] MEDS: methylPREDNISolone SOD SUCC 125 MG VIAL IV PUSH (18:24)
[2022-09-13 18:36] LABS: Base Excess ABG 1.6 mmol/L (0-2); HCO3 ABG 25.3 mmol/L (23-29); Oxygen Content ABG 21.3 %vol (16.0-22.0); Oxygen Saturation ABG 94.1 % (95-97); Oxyhemoglobin 93.2 % (94-100); PCO2 ABG 37.1 mmHg (35-45); PO2 ABG 64.5 mmHg (80-90); Total Hemoglobin 16.3 g/dL (12.0-18.0); pH ABG 7.45 (7.35-7.45)
[2022-09-13 18:37] LABS: Device ROOM AIR; Modified Allen's Test Pass; Site Drawn LEFT RADIAL
[2022-09-13 18:39] LABS: Hematocrit 47.8 % (40.0-54.0); Hemoglobin 15.6 g/dL (14.0-18.0); Mean Corpuscular HGB Conc 32.6 g/dL (32.0-36.0); Mean Corpuscular Hemoglobin 28.3 pg (27.0-31.0); Mean Corpuscular Volume 86.6 fL (78.0-102.0); Mean Platelet Volume 10.3 fl (8.7-11.0); Platelet Count Result 285 K/mm3 (150-420); Red Blood Count 5.52 M/mm3 (4.70-6.10); Red Cell Distribution Width 13.5 % (11.6-14.4); White Blood Count 7.2 K/mm3 (4.8-10.8)
[2022-09-13 18:50] LABS: Band Neutrophils Percent 0 % (0-6); Basophils Absolute Manual 0.14 K/mm3 (0-0.1); Basophils Percent Manual 2 % (0-1); Eosinophils Absolute Manual 1.29 K/mm3 (0.02-0.5); Eosinophils Percent Manual 18 % (1-6); Lymphocytes Absolute Manual 1.36 K/mm3 (1.1-4.5); Lymphocytes Percent Manual 19 % (18-44); Monocytes Absolute Manual 0.64 K/mm3 (0.1-0.90); Monocytes Percent Manual 9 % (3-9); Neutrophils Absolute Manual 3.74 K/mm3 (1.3-6.7); Neutrophils Percent Manual 52 % (46-73); Platelet Estimate Adequate (Adequate)
--- NOTE | 2022-09-13 18:52 | PC.NURSE ---
PT IS LYING ON STRETCHER AT THIS TIME, REPORTS HIS BREATHING IS GETTING EASIER, HOWEVER NO CHANGE IN STATUS. WILL CONTINUE TO MONITOR.
[2022-09-13 18:55] LABS: Alanine Aminotransferase 34 U/L (16-63); Albumin Level 3.3 g/dL (3.4-5.0); Alkaline Phosphatase 73 U/L (46-116); Anion Gap 7 mmol/L (8-16); Aspartate Amino Transferase 22 U/L (15-37); Bilirubin,Total 0.5 mg/dL (0.00-1.00); Blood Urea Nitrogen 13 mg/dL (7-18); Calcium 8.8 mg/dL (8.5-10.1); Carbon Dioxide 28 mmol/L (21-32); Chloride 104 mmol/L (98-108); Estimated CRCL calculation 60 ml/min; Estimated Glomerular Filt Rate > 60; Glucose 135 mg/dL (70-99); Magnesium 1.8 mg/dL (1.8-2.4); Osmolality Calculated 290 mOsm/kg (285-295); Potassium 3.6 mmol/L (3.5-5.1); Sodium 139 mmol/L (136-145); Total Protein 7.4 g/dL (6.4-8.2); Troponin I 7.8 ng/L (0.00-60.4)
[2022-09-13] MEDS: ALBUTEROL SULFATE NEB 2.5 MG/3 ML INH INHALATION (18:56)
[2022-09-13 18:58] LABS: Lactic Acid Reflex 1.8 mmol/L (0.4-2.0)
--- NOTE | 2022-09-13 19:00 | PC.NURSE ---
Assumed care of pt at this time. Agree with previous shift assessment. Respiratory at bedside administering second updraft tx. Pt tolerates well. SpO2 on neb 97%.
[2022-09-13] MEDS: MAGNESIUM SULF 2 GM/WATER 50ML 2 GM/50 ML BAG IVPB (19:10)
[2022-09-13] MEDS: ALBUTEROL SULFATE NEB 2.5 MG/3 ML INH 10 MG INHALATION (19:16)
--- NOTE | 2022-09-13 19:16 | PC.NURSE ---
Pt tolerated updraft well. IV magnesium initiated. Respiratory pathogen swab obtained and sent. PT voices no new needs or complaints at this time. PT speaks in 4-5 word sentences. Terminal inspiratory phase wheezing and entire expiratory phase wheezing noted. Pt resting in semi-Fields's position SpO2 93% on room air. Call light in reach. Side rails up x 2.
[2022-09-13] MEDS: SODIUM CHLORIDE 0.9% IV 1,000 ML 999 ML IV CONT (19:25)
[2022-09-13 19:57] LABS: Influenza A QL RT-PCR Negative (Negative); Influenza B QL RT-PCR Negative (Negative); SARS-CoV-2 RNA PCR Negative (Negative)
[2022-09-13 19:58] LABS: RSV RNA, RT-PCR Negative (Negative)
--- NOTE | 2022-09-13 20:13 | PC.NURSE ---
Pt completed hour-long neb. Pt tolerated well. Pt remains having inspiratory and expiratory wheezing. SpO2 on room air following neb 93%.
--- NOTE | 2022-09-13 20:30 | PC.NURSE ---
Called [facility] for bed, Pat asks this RN to return call in few minutes for bed assignment.
--- NOTE | 2022-09-13 20:40 | PC.NURSE ---
Pt to go to room 210. Remain awaiting return call from DAVINA Stewart for report. Pt SpO2 89-90% on room air. Pt placed on 2 L O2 per NC and SpO2 improved to 92% EtCO2 reading of 23-25.
--- NOTE | 2022-09-13 20:50 | ADMGEN ---
This patient, Andrew Mittal, was admitted to 2nd Floor Room 210-2. Patient oriented to hospital policies and general routines including ID bracelet, bed and alarms, visiting hours, pain management, procedures, bathroom and other care routines, personal items, smoking policy, room service/diet, and visiting hours. Information on how to activate the Rapid Response Team has been discussed. Patient is encouraged to report perceived risks to care and to ask questions if they do not understand what they are told or what they should do.
--- NOTE | 2022-09-13 21:21 | PC.NURSE ---
Patient states he has not been taking meds x 2 months, states I didn't think I needed them . Education given on importance of seeing MD before stopping all of his medications, patient states understanding.
[2022-09-13] MEDS: methylPREDNISolone SOD SUCC 40 MG VIAL IV PUSH (21:49)
[2022-09-13] MEDS: clonazePAM (*CRX) 0.5 MG TABLET 1 MG PO (21:51)
[2022-09-13] MEDS: LEVALBUTEROL NEB 1.25 MG/3 ML INHALATION (23:14)
[2022-09-14] VITALS (19 sets, daily range): BP systolic 124–159; BP diastolic 78–94; PULSE 103–128; RESP 14–22; TEMP 36.4–36.7; O2SAT 91–98
[2022-09-14] MEDS: LEVALBUTEROL NEB 1.25 MG/3 ML INHALATION ×6 (02:03→23:07)
--- NOTE | 2022-09-14 02:20 | PC.NURSE ---
RT in with patient, able to titrate O2 off, SPO2 92% on room air, no SOB noted.
[2022-09-14] MEDS: methylPREDNISolone SOD SUCC 40 MG VIAL IV PUSH ×2 (05:14→17:37)
[2022-09-14 05:48] LABS: Hematocrit 46.8 % (40.0-54.0); Hemoglobin 15.3 g/dL (14.0-18.0); Mean Corpuscular HGB Conc 32.7 g/dL (32.0-36.0); Mean Corpuscular Hemoglobin 28.1 pg (27.0-31.0); Mean Platelet Volume 10.4 fl (8.7-11.0); Platelet Count Result 291 K/mm3 (150-420); Red Blood Count 5.44 M/mm3 (4.70-6.10); Red Cell Distribution Width 13.4 % (11.6-14.4); White Blood Count 8.2 K/mm3 (4.8-10.8)
[2022-09-14 06:08] LABS: Anion Gap 9 mmol/L (8-16); Blood Urea Nitrogen 16 mg/dL (7-18); Carbon Dioxide 25 mmol/L (21-32); Chloride 104 mmol/L (98-108); Estimated CRCL calculation 62 ml/min; Estimated Glomerular Filt Rate > 60; Glucose 198 mg/dL (70-99); Osmolality Calculated 293 mOsm/kg (285-295); Potassium 3.8 mmol/L (3.5-5.1); Sodium 138 mmol/L (136-145)
[2022-09-14 06:27] LABS: Calcium 8.9 mg/dL (8.5-10.1)
[2022-09-14] MEDS: PANTOPRAZOLE 40 MG TABLET PO ×2 (09:01→21:20)
--- NOTE | 2022-09-14 09:36 | PM.IMHP ---
H&P: HPI History of Present Illness Date/Time: 09/14/22 09:36 Chief Complaint: Status Asthmatic, Hypertension Narrative: This is a 45-year-old that presented to the emergency room with shortness of breath that has gotten worse over the past 2-3 days according to patient nothing has made it better. Patient on arrival had a blood pressure 155/91 respirations were 22 was wheezing profusely was requiring IV steroids as well as nebulizers medication and blood pressure medicine. Patient has a past medical history of hyperlipidemia, hypertension, asthma and was prescribed oral medication that he has not taken in such a long time that he did not have the capabilities of getting the medication at this time. Patient initially required some oxygen patient has a primary care provider he was unable to give me the name. Discussion with patient as to why he has not taken the medication or if he cannot afford it patient states that he can he just did not make it up priority. I did have long discussion with the patient about the importance of making sure he takes his blood pressure medication as well as his cholesterol medicine spoke with him about his home breathing treatments the medication patient has a history of tachycardia states that his heart is high a lot my does not have a primary xm1 tank driver who will complete echo today for patient as well as all start him on a beta-lul and his home medications patient should follow-up with his primary care doctor. Patient is not as wheezy at this time but is pretty course I will go ahead and start patient on the continual breathing treatments and we will plan for possible discharge in the morning patient heart rate currently is 130 when I did a apical pulse Review of Systems Review of Systems: tachycardia, shortness of breath, hypertension All systems reviewed & are unremarkable except as noted in HPI and below [facility] Past Medical History Medical History Asthma GERD (gastroesophageal reflux disease) Hyperlipidemia Hypertension Family History Family History Mother Diabetes mellitus Social History Social History Smoking status: Never smoker Second hand tobacco smoke exposure: No Alcohol intake: current Drinks per week: 36 Alcohol use details: 2 -3 drinks daily Substance use: never Lack of Transportation: No Lack of Food: Never True Current Housing: I Have Housing Concerned About Future Housing: No Difficulty Paying Gas/Electric Bills: No Difficulty Paying for Meds: No Currently Unemployed: No Education: High School Diploma/GED Difficulty w/ Childcare or Family Care: No Spiritual care concerns: No Comments At time as signature, I have reviewed and agree with nursing past medical, social, surgical and family history. Please see nursing chart for further information. There is no relevant family history pertinent to the presenting complaint. Meds Home Medications and Allergies Home Medications Medication Instructions Recorded Confirmed Type albuterol sulfate 90 mcg/actuation 2 puff inhalation PRN PRN 12/16/19 09/13/22 History aerosol inhaler (ProAir HFA) Shortness Of Breath Or Wheezing clonazepam 1 mg tablet 1 mg PO HS 12/16/19 09/13/22 History omeprazole 40 mg capsule,delayed 40 mg PO DAILY 12/16/19 09/13/22 History release Allergies Allergy/AdvReac Type Severity Reaction Status Date / Time No Known Allergies Allergy Verified 09/13/22 18:09 Vital Signs Vital Signs - 24 hr 09/13/22 18:29 09/13/22 18:09 09/13/22 18:05 Temperature 98.6 F Pulse Rate 104 H 93 Respiratory Rate 20 22 H Blood Pressure 155/91 H Pulse Oximetry 95 Oxygen Delivery Room Air Room Air Oxygen Flow Rate 09/13/22 18:21 09/13/22 18:53 09/13/22 18:56 Temperature Pulse Rate
[2022-09-14] MEDS: METOPROLOL TARTRATE 12.5 MG TABLET PO ×2 (10:01→21:18)
[2022-09-14] MEDS: LOSARTAN POTASSIUM 50 MG TABLET PO (10:02)
[2022-09-14] MEDS: MORPHINE SULFATE (*CRX) 2 MG/ML INJ IV PUSH (18:31)
[2022-09-14] MEDS: clonazePAM (*CRX) 0.5 MG TABLET 1 MG PO (21:20)
[2022-09-14] MEDS: MONTELUKAST SODIUM 10 MG TABLET PO (21:20)
[2022-09-15] VITALS (13 sets, daily range): BP systolic 138–143; BP diastolic 83–91; PULSE 78–117; RESP 16–20; TEMP 36.4–36.5; O2SAT 92–94
[2022-09-15] MEDS: LEVALBUTEROL NEB 1.25 MG/3 ML INHALATION ×4 (05:01→23:06)
[2022-09-15 05:31] LABS: Hematocrit 48.1 % (40.0-54.0); Hemoglobin 15.4 g/dL (14.0-18.0); Mean Corpuscular Volume 87.5 fL (78.0-102.0); Mean Platelet Volume 10.6 fl (8.7-11.0); Platelet Count Result 306 K/mm3 (150-420); Red Cell Distribution Width 13.6 % (11.6-14.4); White Blood Count 17.4 K/mm3 (4.8-10.8)
[2022-09-15 05:43] LABS: Anion Gap 8 mmol/L (8-16); Blood Urea Nitrogen 23 mg/dL (7-18); Carbon Dioxide 28 mmol/L (21-32); Chloride 103 mmol/L (98-108); Estimated CRCL calculation 75 ml/min; Estimated Glomerular Filt Rate > 60; Glucose 129 mg/dL (70-99); Osmolality Calculated 293 mOsm/kg (285-295); Potassium 4.2 mmol/L (3.5-5.1); Sodium 139 mmol/L (136-145)
[2022-09-15] MEDS: methylPREDNISolone SOD SUCC 40 MG VIAL IV PUSH (06:20)
[2022-09-15] MEDS: ATORVASTATIN 10 MG TABLET 20 MG PO (09:15)
[2022-09-15] MEDS: PANTOPRAZOLE 40 MG TABLET PO ×2 (09:15→21:18)
[2022-09-15] MEDS: LOSARTAN POTASSIUM 50 MG TABLET PO (09:15)
[2022-09-15] MEDS: METOPROLOL TARTRATE 12.5 MG TABLET PO ×2 (09:16→21:18)
--- NOTE | 2022-09-15 11:16 | WPDPN ---
Progress Note: A&P Assessment and Plan (1) Hyperlipidemia: Code(s): E78.5 - Hyperlipidemia, unspecified Status: Acute Assessment and Plan: echocardiogram ordered Atorvastatin reordered (2) GERD (gastroesophageal reflux disease): Code(s): K21.9 - Gastro-esophageal reflux disease without esophagitis Status: Acute (3) Asthma: Code(s): J45.909 - Unspecified asthma, uncomplicated Status: Acute Assessment and Plan: IV steroids changed to 40 mg daily Oxygen as needed Nebulized treatments q.4 Xopenex due to tachycardia (4) Hypertension: Code(s): I10 - Essential (primary) hypertension Status: Acute Assessment and Plan: losartan reordered Started on Lopressor 12.5 b.i.d. Follow blood pressure continue to monitor (5) Elevated WBCs: Code(s): D72.829 - Elevated white blood cell count, unspecified Status: Acute Assessment and Plan: possibly secondary to steroid use versus infection steroids decreased, blood cultures pending, ABX started, chest x-ray pending CBC in the a.m. Subjective Date/time seen: 09/15/22 11:16 Interval history: patient breathing has improved since his admission. Patient white count has increased drastically possibly secondary to steroid use. Patient will remain an additional day steroids will be decreased, will start antibiotic treatment along with chest x-ray and blood culture. The patient denies SOB, CP, palpitation, extremity numbness, lightheadedness, dizziness, constipation, diarrhea, chills, or fever. Review of Systems Review of Systems: tachycardia, shortness of breath, hypertension All systems reviewed & are unremarkable except as noted in HPI and below Exam Narrative: GENERAL:Well-appearing, well-nourished, and in no acute distress. HEAD:Normocephalic, atraumatic. EYES: PERRLA and EOMI. ENT: Nares clear, no rhinorrhea or epistaxis. Mucous membranes moist. CHEST: course lung sounds . No respiratory distress. HEART: Tachycardia Regular rate and rhythm. . Normal peripheral pulses. ABDOMEN: Soft, nontender, nondistended, normal active bowel sounds. EXTREMITIES: Normal range of motion. No edema. SKIN: Warm, dry, no rash. NEURO: No focal deficits. Alert and oriented x3. Objective Data Vital Signs Vital Signs: Vital Signs - 24 hr 09/14/22 11:17 09/14/22 13:33 09/14/22 13:43 Temperature 36.4 C Pulse Rate 122 H 124 H 122 H Respiratory Rate 14 20 20 Blood Pressure 140/84 Pulse Oximetry 97 92 97 Oxygen Delivery Room Air 09/14/22 16:00 09/14/22 18:28 09/14/22 18:37 Temperature 36.4 C Pulse Rate 113 H 103 H 105 H Respiratory Rate 16 16 16 Blood Pressure 124/78 Pulse Oximetry 97 93 Oxygen Delivery Room Air 09/14/22 21:18 09/14/22 23:07 09/14/22 23:23 Temperature Pulse Rate 124 H 105 H 110 H Respiratory Rate 20 20 Blood Pressure Pulse Oximetry 95 Oxygen Delivery 09/15/22 00:00 09/15/22 05:01 09/15/22 05:12 Temperature 36.4 C Pulse Rate 100 110 H 112 H Respiratory Rate 16 20 16 Blood Pressure 143/91 H Pulse Oximetry 93 92 Oxygen Delivery Room Air 09/15/22 08:00 09/15/22 09:16 Temperature 36.5 C Pulse Rate 100 100 Respiratory Rate 16 Blood Pressure 141/91 H Pulse Oximetry 93 Oxygen Delivery Room Air Intake/Output Intake/Output: Intake & Output 09/12/22 09/13/22 09/14/22 09/15/22 23:59 23:59 23:59 23:59 Intake Total 1050 2410 750 Balance 1050 2410 750 Meds/Results Medications: Active Medications Generic Name Dose Route Start Last Admin Trade Name Freq PRN Reason Stop Dose Admin Acetaminophen 650 mg 09/13/22 20:29 Acetaminophen 325 Mg Tablet PO Q4H PRN Mild Pain (1-3) or Fever Atorvastatin Calcium 20 mg 09/15/22 09:00 09/15/22 09:15 Atorvastatin 10 Mg Tablet PO 20 mg DAILY ROSANA Administration Clonazepam 1 mg 09/13/22 21:00 09/14/22 21:20 Cl
[2022-09-15] MEDS: MONTELUKAST SODIUM 10 MG TABLET PO (21:18)
[2022-09-15] MEDS: clonazePAM (*CRX) 0.5 MG TABLET 1 MG PO (21:19)
[2022-09-16] VITALS (7 sets, daily range): BP systolic 120–148; BP diastolic 82–88; PULSE 94–108; RESP 14–20; TEMP 35.9–36.6; O2SAT 94–98
[2022-09-16] MEDS: LEVALBUTEROL NEB 1.25 MG/3 ML INHALATION ×2 (04:59→11:28)
[2022-09-16 05:25] LABS: Basophils Absolute Auto 0.09 K/mm3 (0.00-0.10); Basophils Percent Auto 0.7 % (0.0-1.0); Eosinophils Absolute Auto 0.49 K/mm3 (0.02-0.50); Eosinophils Percent Auto 3.6 % (1.0-6.0); Hematocrit 50.5 % (40.0-54.0); Immature Granulocyte Absolute 0.06 K/mm3 (0.00-0.00); Immature Granulocyte Percent A 0.4 % (0.0-0.0); Lymphocytes Absolute Auto 2.39 K/mm3 (1.10-4.50); Lymphocytes Percent Auto 17.7 % (18.0-42.0); Mean Corpuscular HGB Conc 31.7 g/dL (32.0-36.0); Mean Corpuscular Hemoglobin 28.1 pg (27.0-31.0); Mean Corpuscular Volume 88.6 fL (78.0-102.0); Mean Platelet Volume 10.7 fl (8.7-11.0); Monocytes Absolute Auto 1.39 K/mm3 (0.10-0.90); Monocytes Percent Auto 10.3 % (2.0-11.0); Neutrophils Absolute Auto 9.1 K/mm3 (1.7-7.2); Neutrophils Percent Auto 67.3 % (50.0-70.0); Platelet Count Result 288 K/mm3 (150-420); Red Cell Distribution Width 13.8 % (11.6-14.4); White Blood Count 13.5 K/mm3 (4.8-10.8)
[2022-09-16 05:41] LABS: Alanine Aminotransferase 31 U/L (16-63); Albumin Level 2.8 g/dL (3.4-5.0); Alkaline Phosphatase 66 U/L (46-116); Anion Gap 7 mmol/L (8-16); Aspartate Amino Transferase 11 U/L (15-37); Bilirubin,Total 0.3 mg/dL (0.00-1.00); Blood Urea Nitrogen 23 mg/dL (7-18); Calcium 8.9 mg/dL (8.5-10.1); Carbon Dioxide 29 mmol/L (21-32); Chloride 106 mmol/L (98-108); Estimated CRCL calculation 75 ml/min; Estimated Glomerular Filt Rate > 60; Glucose 111 mg/dL (70-99); Osmolality Calculated 298 mOsm/kg (285-295); Potassium 3.3 mmol/L (3.5-5.1); Sodium 142 mmol/L (136-145)
[2022-09-16] MEDS: METOPROLOL TARTRATE 12.5 MG TABLET PO (09:12)
[2022-09-16] MEDS: methylPREDNISolone SOD SUCC 40 MG VIAL IV PUSH (09:12)
[2022-09-16] MEDS: ATORVASTATIN 10 MG TABLET 20 MG PO (09:13)
[2022-09-16] MEDS: LOSARTAN POTASSIUM 50 MG TABLET PO (09:13)
[2022-09-16] MEDS: PANTOPRAZOLE 40 MG TABLET PO (09:13)
--- NOTE | 2022-09-16 11:23 | PM.DS ---
DS: Admitting Diagnosis Discharge Date 09/16/2022 Admitting Diagnosis Asthma exacerbation DS: Discharge Diagnosis Discharge Diagnosis (1) Asthma: Qualifiers: Asthma severity: moderate Asthma persistence: persistent Asthma complication type: with acute exacerbation Qualified Code(s): J45.41 - Moderate persistent asthma with (acute) exacerbation Code(s): J45.909 - Unspecified asthma, uncomplicated Status: Acute Assessment and Plan: patient's asthma exacerbation significantly improved after receiving nebulizer treatments as well as IV steroids. Patient will be sent home with 2 more days of oral steroids to finish a 5 day course. He will also be sent home with albuterol nebulizer liquid and patient artery does have a nebulizer machine at home. (2) Elevated WBCs: Qualifiers: Leukocytosis type: unspecified Qualified Code(s): D72.829 - Elevated white blood cell count, unspecified Code(s): D72.829 - Elevated white blood cell count, unspecified Status: Acute Assessment and Plan: Leukocytosis most likely secondary to steroids. (3) Tachycardia: Code(s): R00.0 - Tachycardia, unspecified Status: Acute Assessment and Plan: Most likely secondary to steroids and albuterol. Did discuss the patient will need to follow up with primary care to be re-evaluated. (4) Hypertension: Qualifiers: Hypertension type: unspecified secondary hypertension Qualified Code(s): I15.9 - Secondary hypertension, unspecified Code(s): I10 - Essential (primary) hypertension Status: Acute Assessment and Plan: Stable at this time patient will be sent home with previous home medications and Lopressor. DS: Summary Hospital Course Reason for hospitalization: Asthma exacerbation Hospital Course: Mr. Mittal Is a 46-year-old gentleman who presented emergency room with complaints of shortness breath and wheezing. Patient was noted to be having an asthma exacerbation and was admitted to the hospital for further treatment. During hospitalization patient received IV steroids as well as nebulizer treatments. during hospitalization it was noted the patient had a leukocytosis it was most likely secondary to steroids. Patient's chest x-ray was negative for any acute cardiopulmonary process. Patient has significantly improved and is able to walk without any shortness of breath and has no shortness of breath at rest. Patient does have a fine wheeze noted to his left lower lobe that does clear with coughing. At this point time patient is doing well and is ready for discharge home. Did discuss in depth with patient that he needs take all medications as ordered. Patient verbalized understanding. Also discussed with patient that he will need to follow up with his primary care provider within the next 7-10 days for any further recommendations in for routine follow-up on his asthma. Patient verbalized understanding. Status at Discharge Cognitive/behavioral status at discharge: Status at discharge is stable and improved. Time Spent with Patient Time attestation: Total time spent providing and/or coordinating discharge services: 45 minutes Exam Narrative: Constitutional: Patient is well-nourished in no acute distress. Patient is alert and oriented x3 HEENT: Moist mucous membranes. No scleral icterus. No lymphadenopathy. Neck: No carotid bruits noted no JVD noted Lungs: Patient has fine wheeze noted to left lower lobe that clears with coughing. No accessory muscle use. No rhonchi or rales. Cardiovascular: Apical pulse is regular rate and rhythm. S1-S2 noted, no S3 or S4 noted. No gallops, murmurs, or rubs noted. Abdomen: Soft, round, and nontender. No palpable masses. Extremities: No edema. Nontender. Skin: No rashes or lesions. Warm and dry. Skin is intact. Neurological: No focal neurological deficits. Cranial nerves II-XII grossly int
[2022-09-16] MEDS: POTASSIUM CHLORIDE 20 MEQ TABLET 40 MEQ PO (11:50)
--- NOTE | 2022-09-16 13:02 | PC.NURSE ---
Pt discharged to home. Medication discharge instructions given to pt. Dose, purpose, times and side effects of all drugs gone over. Pt verbalized understanding . Follow up appointments reviewed with pt. Pt taken to family car via WC by RN. Pt vss, lungs clear.
--- NOTE | 2022-09-21 13:16 | PC.NURSE ---
Unable to contact for discharge call back.
== END 2022-09-16 12:30 | disposition home or self-care (01) ==
LOC: CHSED 20:38 → CHS2ND 20:41
PROVIDERS: Nurse Practitioner; Nurse Practitioner Family; Admitting Provider Internal Medicine; Emergency Provider Family Medicine; PCP Internal Medicine; Visit Provider Internal Medicine
DX: J45.41 Moderate persistent asthma with (acute) exacerbation (principal); I10 Essential (primary) hypertension; K21.9 Gastro-esophageal reflux disease without esophagitis; E78.5 Hyperlipidemia, unspecified; R00.0 Tachycardia, unspecified
CPT/HCPCS: 36415; 36600; 71045; 80048; 80053; 82805; 83605; 83735; 84484; 85025; 85027; 87040; 87637; 93005; 94640; 96365; 96367; 96375; 96376; 99285; A9270; G0378; J0696; J2270; J2920; J2930; J3475; J7030

== ENCOUNTER 2022-10-02 12:52 | Inpatient (IN) | payer BC, SELFPAY ==
[2022-10-02] VITALS (36 sets, daily range): BP systolic 137–166; BP diastolic 70–107; PULSE 103–137; RESP 19–34; TEMP 36.6–37.7; O2SAT 89–100; BMI 26.4
--- NOTE | ~2022-10-02 | CT_ITS ---
EXAMINATION: CT diagnostic chest w con DATE: 10/02/2022 15:10 INDICATION: Dyspnea. Chills. Chest tightness. History of asthma. TECHNIQUE: Computed tomography (CT) of the chest was performed with 75 cc Omnipaque 350 intravenous c ontrast. The dose-length product was 181.70 mGy-cm. Automated exposure control and iterative reconstr uction technique were employed. COMPARISON: Chest x-ray dated 10/02/[address] dated 12/16/2019 FINDINGS: No significant vascular abnormality. No evidence for aortic aneurysm or dissection. Heart s ize normal. No significant pleural or pericardial effusion. There is mild mediastinal lymphadenopathy . There are coarse interstitial changes of the upper lobes anteriorly, likely chronic fibrosis. There are patchy groundglass opacities of the lower lobes, suspicious for infectious/inflammatory process. There is a 6 mm right lower lobe nodule. There is a 7 mm left lower lobe nodule, image 74. There is a 9 mm left lower lobe nodule, image 104 IMPRESSION: 1. Patchy groundglass opacities of the lower lobes, suspicious for pneumonia. 2: Bilateral lower lobe pulmonary nodules measuring 9 mm or less. These nodules may be infectious/inf lammatory although neoplasm not excluded. Recommend follow-up low dose CT chest in 3 months to assess for resolution. 3: Mild mediastinal lymphadenopathy, nonspecific. Reviewed, dictated and finalized at location A. IMPRESSION: 1. Patchy groundglass opacities of the lower lobes, suspicious for pneumonia. 2: Bilateral lower lobe pulmonary nodules measuring 9 mm or less. These nodules may be infectious/inflammatory although neoplasm not excluded. Recommend follo w-up low dose CT chest in 3 months to assess for resolution. 3: Mild mediastinal lymphadenopathy, nonspecific.
--- NOTE | ~2022-10-02 | XR_ITS ---
XR chest 1V portable DATE: 10/02/2022 13:38 INDICATION: Chest tightness, dyspnea, chills for 2 days TECHNIQUE: Portable upright AP chest on 10/02/2022 at 1337 hours COMPARISON: 09/16/2022 portable AP chest at 0758 hours FINDINGS: Normal heart size. No hilar or mediastinal enlargement. There is interval mild elevation right leaf of the diaphragm since 09/16/2022 with mild infiltrate or a telectasis at the right lung base. No pleural effusion, pulmonary vascular congestion or pneumothorax is detected. Degenerative spurring of the thoracic spine. IMPRESSION: Interval mild elevation of the right leaf of the diaphragm and mild infiltrate or atelect asis at the right lung base since 09/16/2022 Reviewed, dictated and finalized at location A. IMPRESSION: Interval mild elevation of the right leaf of the diaphragm and mild infiltrate or atelectasis at the right lung base since 09/16/2022
--- NOTE | 2022-10-02 13:00 | ECG_ITS ---
Measurements Intervals [place] Rate: 128 P: 64 AK: 154 QRS: 64 QRSD: 98 T: 36 QT: 311 QTc: 455 Interpretive Statements SINUS TACHYCARDIA BORDERLINE ECG COMPARED TO ECG 09/13/2022 18:17:31 SINUS TACHYCARDIA NOW PRESENT Electronically Signed On 10-02-2022 13:24:18 CDT by Parveen Cruz M.D.
[2022-10-02] MEDS: ALBUTEROL SULFATE NEB 2.5 MG/3 ML INH 10 MG INHALATION (13:08)
--- NOTE | 2022-10-02 13:14 | ED.GENADULT ---
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 Patient was admitted to our hospital on September 13 for asthma exacerbation. He improved over the course of several days and was discharged. He has been taking his medication as directed but starting 2 days ago he started to have worsening shortness of breath, chest tightness, chills, cough and diaphoresis. His inhalers have not been helping. Related Data Home Medications Medication Instructions Recorded Confirmed clonazepam 1 mg tablet 1 mg PO HS 12/16/19 10/02/22 omeprazole 40 mg capsule,delayed 40 mg PO DAILY 12/16/19 10/02/22 release Allergies Allergy/AdvReac Type Severity Reaction Status Date / Time No Known Allergies Allergy Verified 10/02/22 13:07 [facility] Past Medical History Medical History (Updated 10/02/22 @ 15:40 by Pradeep Asencio MD) Asthma GERD (gastroesophageal reflux disease) Hyperlipidemia Hypertension Tachycardia Family History Family History Mother Diabetes mellitus Social History Social History Smoking status: Never smoker Second hand tobacco smoke exposure: No Alcohol intake: current Drinks per week: 36 Alcohol use details: 2 -3 drinks daily Substance use: never Lack of Transportation: No Lack of Food: Never True Current Housing: I Have Housing Concerned About Future Housing: No Difficulty Paying Gas/Electric Bills: No Difficulty Paying for Meds: No Currently Unemployed: No Education: High School Diploma/GED Difficulty w/ Childcare or Family Care: No Spiritual care concerns: No Exam Narrative: APPEARANCE: Patient is in respiratory distress, he is diaphoretic and coughing Head: atraumatic. EYES: EOMI, NOSE: Atraumatic NECK: Trachea midline RESPIRATORY: increased work of breathing, diffuse wheezing CARDIOVASCULAR: tachycardic, no peripheral edema ABDOMINAL: Non-distended MUSCULOSKELETAl: No obvious deformities NEURO: Alert. Moving 4/4 extremities SKIN:: diaphoretic PSYCHIATRIC: Normal affect Course Vital Signs Vital signs: Vital Signs Temperature 99.8 F H 10/02/22 12:52 Pulse Rate 137 H 10/02/22 12:52 Respiratory Rate 24 H 10/02/22 12:52 Blood Pressure 149/95 H 10/02/22 12:52 Pulse Oximetry 90 10/02/22 12:52 Oxygen Delivery Room Air 10/02/22 12:52 Temperature 99.8 F H 10/02/22 12:52 Pulse Rate 137 H 10/02/22 12:52 Respiratory Rate 24 H 10/02/22 12:52 Blood Pressure 149/95 H 10/02/22 12:52 Pulse Oximetry 90 10/02/22 12:52 Oxygen Delivery Room Air 10/02/22 12:52 Medical Decision Making MDM Narrative Medical decision making narrative: -Presentation: 38-year-old male history of asthma presenting shortness of breath. On arrival he is wheezing, diaphoretic, tachycardic. 80% on room air placed on 2 L nasal cannula. 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 -External Chart Review: review of recent admission notes for asthma exacerbation, review of high-resolution CT from 2019 showing reticular and ground glass opacities. -Hx from independent Sources: none -Discussion of Management/Consultants: Triny Goodwin Hospitalist -Independent interpretation of studies: white count 10.2. 11.9% is Eosinophils Metabolic panel normal. Viral swabs negative. Chest x-ray showed slightly increased infiltrates in the right side. Patient will be started on antibiotics for CAP. CT: Chest 1. Patchy groun
[2022-10-02] MEDS: SODIUM CHLORIDE 0.9% IV 2,000 ML 999 ML IV CONT (13:16)
[2022-10-02] MEDS: MAGNESIUM SULF 2 GM/WATER 50ML 2 GM/50 ML BAG IVPB (13:18)
[2022-10-02] MEDS: ACETAMINOPHEN 500 MG TABLET 1000 MG PO (13:20)
[2022-10-02 13:21] LABS: Basophils Absolute Auto 0.14 K/mm3 (0.00-0.10); Basophils Percent Auto 1.4 % (0.0-1.0); Eosinophils Absolute Auto 1.22 K/mm3 (0.02-0.50); Eosinophils Percent Auto 11.9 % (1.0-6.0); Hematocrit 46.2 % (40.0-54.0); Hemoglobin 15.1 g/dL (14.0-18.0); Immature Granulocyte Absolute 0.02 K/mm3 (0.00-0.00); Immature Granulocyte Percent A 0.2 % (0.0-0.0); Lymphocytes Absolute Auto 1.33 K/mm3 (1.10-4.50); Mean Corpuscular HGB Conc 32.7 g/dL (32.0-36.0); Mean Corpuscular Hemoglobin 28.2 pg (27.0-31.0); Mean Corpuscular Volume 86.2 fL (78.0-102.0); Mean Platelet Volume 10.4 fl (8.7-11.0); Monocytes Percent Auto 8.8 % (2.0-11.0); Neutrophils Absolute Auto 6.6 K/mm3 (1.7-7.2); Neutrophils Percent Auto 64.7 % (50.0-70.0); Platelet Count Result 312 K/mm3 (150-420); Red Blood Count 5.36 M/mm3 (4.70-6.10); Red Cell Distribution Width 13.2 % (11.6-14.4); White Blood Count 10.2 K/mm3 (4.8-10.8)
[2022-10-02 13:35] LABS: INR 0.9; Partial Thromboplastin Time 28.8 SEC (23.90-30.70); Prothrombin Time 10.3 Seconds (9.50-12.10)
[2022-10-02 13:39] LABS: Alanine Aminotransferase 26 U/L (16-63); Alkaline Phosphatase 71 U/L (46-116); Anion Gap 10 mmol/L (8-16); Aspartate Amino Transferase 16 U/L (15-37); Bilirubin,Total 0.5 mg/dL (0.00-1.00); Blood Urea Nitrogen 14 mg/dL (7-18); Calcium 9.3 mg/dL (8.5-10.1); Carbon Dioxide 27 mmol/L (21-32); Chloride 102 mmol/L (98-108); Estimated Glomerular Filt Rate > 60; Glucose 130 mg/dL (70-99); Magnesium 1.4 mg/dL (1.8-2.4); Osmolality Calculated 290 mOsm/kg (285-295); Potassium 3.7 mmol/L (3.5-5.1); Sodium 139 mmol/L (136-145); Total Protein 7.9 g/dL (6.4-8.2)
[2022-10-02] MEDS: IPRATROPIUM BR 0.02% INH SOLN 0.5 MG/2.5 ML VIAL 1.5 MG INHALATION (13:51)
[2022-10-02 13:58] LABS: Influenza A QL RT-PCR Negative (Negative); Influenza B QL RT-PCR Negative (Negative); SARS-CoV-2 RNA PCR Negative (Negative)
[2022-10-02 13:59] LABS: RSV RNA, RT-PCR Negative (Negative)
--- NOTE | 2022-10-02 16:00 | ADMGEN ---
This patient, Andrew Mittal, was admitted to 2nd Floor Room 209-1. Patient/family oriented to hospital policies and general routines including ID bracelet, bed and alarms, visiting hours, pain management, procedures, bathroom and other care routines, personal items, smoking policy, room service/diet, and visiting hours. Information on how to activate the Rapid Response Team has been discussed. Patient/Family are encouraged to report perceived risks to care and to ask questions if they do not understand what they are told or what they should do.
[2022-10-02 16:45] LABS: Troponin I 8.8 ng/L (0.00-60.4)
[2022-10-02] MEDS: SODIUM CHLORIDE 0.9% IV 1,000 ML 100 ML IV CONT (16:48)
[2022-10-02] MEDS: AZITHROMYCIN 500 MG/NS 250 ML 500 MG/250 ML BAG 250 MG IVPB (16:49)
[2022-10-02] MEDS: IPRATROPIUM 0.5 MG/ALBUTEROL SULFATE 2.5 MG AMPUL.NEB 3 ML INHALATION ×2 (18:49→23:47)
[2022-10-02] MEDS: METOPROLOL TARTRATE 12.5 MG TABLET PO (20:38)
[2022-10-02] MEDS: MONTELUKAST SODIUM 10 MG TABLET PO (20:48)
[2022-10-02] MEDS: methylPREDNISolone SOD SUCC 125 MG VIAL 60 MG IV PUSH (21:07)
[2022-10-02] MEDS: clonazePAM (*CRX) 0.5 MG TABLET 1 MG PO (21:08)
[2022-10-03] VITALS (16 sets, daily range): BP systolic 141–143; BP diastolic 79–90; PULSE 110–117; RESP 18–25; TEMP 36.6–36.9; O2SAT 90–96
[2022-10-03] MEDS: SODIUM CHLORIDE 0.9% IV 1,000 ML 100 ML IV CONT (03:18)
[2022-10-03 06:03] LABS: Basophils Absolute Auto 0.02 K/mm3 (0.00-0.10); Basophils Percent Auto 0.2 % (0.0-1.0); Hematocrit 42.9 % (40.0-54.0); Hemoglobin 14.3 g/dL (14.0-18.0); Immature Granulocyte Absolute 0.03 K/mm3 (0.00-0.00); Immature Granulocyte Percent A 0.3 % (0.0-0.0); Lymphocytes Percent Auto 5.1 % (18.0-42.0); Mean Corpuscular HGB Conc 33.3 g/dL (32.0-36.0); Mean Corpuscular Hemoglobin 28.5 pg (27.0-31.0); Mean Corpuscular Volume 85.6 fL (78.0-102.0); Mean Platelet Volume 10.3 fl (8.7-11.0); Monocytes Absolute Auto 0.19 K/mm3 (0.10-0.90); Monocytes Percent Auto 1.9 % (2.0-11.0); Neutrophils Absolute Auto 9.1 K/mm3 (1.7-7.2); Neutrophils Percent Auto 92.5 % (50.0-70.0); Platelet Count Result 280 K/mm3 (150-420); Red Blood Count 5.01 M/mm3 (4.70-6.10); Red Cell Distribution Width 12.8 % (11.6-14.4); White Blood Count 9.8 K/mm3 (4.8-10.8)
[2022-10-03] MEDS: methylPREDNISolone SOD SUCC 125 MG VIAL 60 MG IV PUSH ×3 (06:07→21:44)
[2022-10-03 06:14] LABS: Anion Gap 8 mmol/L (8-16); Blood Urea Nitrogen 20 mg/dL (7-18); Calcium 8.8 mg/dL (8.5-10.1); Carbon Dioxide 25 mmol/L (21-32); Chloride 105 mmol/L (98-108); Estimated CRCL calculation 83 ml/min; Estimated Glomerular Filt Rate > 60; Glucose 162 mg/dL (70-99); Magnesium 1.9 mg/dL (1.8-2.4); Osmolality Calculated 292 mOsm/kg (285-295); Potassium 4.1 mmol/L (3.5-5.1); Sodium 138 mmol/L (136-145)
--- NOTE | 2022-10-03 08:45 | PM.IMHP ---
H&P: HPI History of Present Illness Date/Time: 10/03/22 08:45 Chief Complaint: SOB Narrative: Mr. Mittal a 46-year-old gentleman who presented emergency room with complaints of shortness of breath x2 days. Patient states he has a known history of asthma and over the last 2 days he has had a cough with no sputum production, wheezing, and shortness of breath with any type of activity. Patient states that he was taking his nebulizer every 2 hours without total relief of his shortness of breath. Patient states when he started to have to use his MDI in addition to his nebulizer he decided to come to the hospital for further evaluation. Patient denies any fever or chills at home. Patient denies any chest discomfort. Patient denies utilizing any oxygen at home. Upon evaluation emergency room patient was noted to be hypoxic and had to have oxygen applied at 3 L per nasal cannula. Patient states that he has been hospitalized twice recently for this shortness of breath. Patient states that approximately 1 month ago he quit taking his scheduled Breo inhaler. Patient states he does realize now that he should been taking this inhaler but he does have a history of stopping medications very abruptly. Patient states he does drink a minimum of a 6 pack of beer daily patient states that he has never smoked cigarettes and used to smoke marijuana on occasion but he cannot recall last time he did so. Patient denies any lightheadedness, dizziness, syncopal, or near syncopal the stones. Patient states that he does have a known history of asthma, but does not recall having a full pulmonary function test performed. As a day noted above patient did quit his Breo inhaler approximately 1 month ago. Patient could not recall the dosage of the inhaler, but after investigation it was noted the patient was on 200/25 mcg daily. Patient denies ever following up with pulmonology. Review of Systems Review of Systems: A 12 point review of systems was completed with patient all pertinent positive and negative per HPI the remainder are unremarkable. [facility] Past Medical History Medical History (Updated 10/02/22 @ 15:40 by Pradeep Asencio MD) Asthma GERD (gastroesophageal reflux disease) Hyperlipidemia Hypertension Tachycardia Surgical History Surgical History (Updated 10/03/22 @ 09:20 by Jennifer Agosto APRN) History of appendectomy Family History Family History Mother Diabetes mellitus Social History Social History (Updated 10/03/22 @ 09:23 by Jennifer Agosto APRN) Smoking status: Never smoker Second hand tobacco smoke exposure: No Alcohol intake: current Drinks per week: 42 Alcohol use details: Patient states he drinks a minimum of a 6 pack of beer daily. Substance use: never Lack of Transportation: No Lack of Food: Never True Current Housing: I Have Housing Concerned About Future Housing: No Difficulty Paying Gas/Electric Bills: No Difficulty Paying for Meds: No Currently Unemployed: No Education: Don't Know Difficulty w/ Childcare or Family Care: No Spiritual care concerns: No Meds Home Medications and Allergies Home Medications Medication Instructions Recorded Confirmed Type clonazepam 1 mg tablet 1 mg PO HS 12/16/19 10/02/22 History omeprazole 40 mg capsule,delayed 40 mg PO DAILY 12/16/19 10/02/22 History release albuterol sulfate 90 mcg/actuation 2 puff inhalation PRN PRN 09/14/22 10/02/22 Rx aerosol inhaler (ProAir HFA) Shortness Of Breath Or Wheezing #8.5 grams losartan 50 mg tablet (Cozaar) 50 mg PO DAILY #30 tabs 09/14/22 10/02/22 Rx metoprolol tartrate 25 mg tablet 12.5 mg PO BID #30 tabs 09/14/22 10/02/22 Rx albuterol sulfate 2.5 mg/3 mL 2.5 mg (3 mL) inhalation Q4H PRN 09/16/22 10/02/22 Rx (0.083 %) solution for nebulization shortness of breath or wheezing #180 mL atorvastatin 10 mg tablet 10 mg PO DAILY
[2022-10-03] MEDS: IPRATROPIUM 0.5 MG/ALBUTEROL SULFATE 2.5 MG AMPUL.NEB 3 ML INHALATION ×4 (09:06→23:37)
[2022-10-03] MEDS: BUDESONIDE RESPULE NEB 0.5 MG/2 ML AMP INHALATION ×2 (09:24→17:36)
[2022-10-03] MEDS: METOPROLOL TARTRATE 12.5 MG TABLET PO (10:11)
[2022-10-03] MEDS: LOSARTAN POTASSIUM 50 MG TABLET PO (10:11)
[2022-10-03] MEDS: ATORVASTATIN 10 MG TABLET PO (10:11)
[2022-10-03] MEDS: ENOXAPARIN 40 MG/0.4 ML SYRINGE SUB-Q (10:11)
[2022-10-03] MEDS: PANTOPRAZOLE 40 MG TABLET PO ×2 (10:11→21:47)
[2022-10-03] MEDS: chlordiazePOXIDE (*CRX) 10 MG CAPSULE PO ×2 (10:12→21:46)
[2022-10-03 13:21] LABS: Amphetamine Screen Urine Negative (Negative); Barbiturate Screen Urine Negative (Negative); Benzodiazepines Screen Urine Negative (Negative); Cannabinoid Screen Urine Negative (Negative); Cocaine Screen Urine Positive (Negative); Methadone Screen Urine Negative (Negative); Opiate Screen Urine Negative (Negative); Phencyclidine Screen Urine Negative (Negative)
--- NOTE | 2022-10-03 13:42 | P.PNCROSS_ITS ---
Event Note Event Note Event Note: Urine drug screen that was ordered in the emergency room returned and was posit opal for cocaine. Did discuss this finding with patient and he admitted to smoking cocaine approximately 2-3 days ago. Patient states he did become short of breath after smoking cocaine. Discussed in depth with patient that he needs to be honest with the hospital staff because there could be interactions with medications and illicit drugs. After further investigation it does appear the patient's home medication list may be incorrect and it is to be revised and home medications will be resumed.
[2022-10-03] MEDS: AZITHROMYCIN 500 MG/NS 250 ML 500 MG/250 ML BAG 250 MG IVPB (15:28)
[2022-10-03] MEDS: clonazePAM (*CRX) 0.5 MG TABLET 1 MG PO (21:45)
[2022-10-03] MEDS: MONTELUKAST SODIUM 10 MG TABLET PO (21:47)
[2022-10-03] MEDS: rOPINIRole HCL 1 MG TABLET 2 MG PO (21:47)
[2022-10-04] VITALS (12 sets, daily range): BP systolic 138–151; BP diastolic 72–88; PULSE 76–117; RESP 16–22; TEMP 36.6–37; O2SAT 92–97
[2022-10-04] MEDS: methylPREDNISolone SOD SUCC 125 MG VIAL 60 MG IV PUSH ×2 (05:05→13:40)
[2022-10-04] MEDS: IPRATROPIUM 0.5 MG/ALBUTEROL SULFATE 2.5 MG AMPUL.NEB 3 ML INHALATION ×3 (05:08→18:29)
[2022-10-04] MEDS: BUDESONIDE RESPULE NEB 0.5 MG/2 ML AMP INHALATION ×2 (05:09→18:29)
[2022-10-04 05:23] LABS: Anion Gap 8 mmol/L (8-16); Blood Urea Nitrogen 26 mg/dL (7-18); Calcium 8.9 mg/dL (8.5-10.1); Carbon Dioxide 27 mmol/L (21-32); Chloride 104 mmol/L (98-108); Estimated CRCL calculation 75 ml/min; Estimated Glomerular Filt Rate > 60; Glucose 164 mg/dL (70-99); Magnesium 1.8 mg/dL (1.8-2.4); Osmolality Calculated 296 mOsm/kg (285-295); Potassium 3.8 mmol/L (3.5-5.1); Sodium 139 mmol/L (136-145)
[2022-10-04 05:39] LABS: Basophils Absolute Auto 0.01 K/mm3 (0.00-0.10); Basophils Percent Auto 0.1 % (0.0-1.0); Hematocrit 41.2 % (40.0-54.0); Hemoglobin 13.6 g/dL (14.0-18.0); Immature Granulocyte Absolute 0.09 K/mm3 (0.00-0.00); Immature Granulocyte Percent A 0.6 % (0.0-0.0); Lymphocytes Absolute Auto 0.65 K/mm3 (1.10-4.50); Lymphocytes Percent Auto 4.5 % (18.0-42.0); Mean Corpuscular Hemoglobin 28.3 pg (27.0-31.0); Mean Corpuscular Volume 85.7 fL (78.0-102.0); Mean Platelet Volume 11.3 fl (8.7-11.0); Monocytes Absolute Auto 0.47 K/mm3 (0.10-0.90); Monocytes Percent Auto 3.2 % (2.0-11.0); Neutrophils Absolute Auto 13.4 K/mm3 (1.7-7.2); Neutrophils Percent Auto 91.6 % (50.0-70.0); Platelet Count Result 302 K/mm3 (150-420); Red Blood Count 4.81 M/mm3 (4.70-6.10); Red Cell Distribution Width 12.8 % (11.6-14.4); White Blood Count 14.6 K/mm3 (4.8-10.8)
--- NOTE | 2022-10-04 08:30 | ECHO_ITS ---
Patient Info Name: Andrew Mittal Age: 46 years : 1975 Gender: Male Ht: 65 in Wt: 170 lbs BSA: 1.90 m2 HR: 105 bpm BP: 151 / 88 mmHg Technical Quality: Good Exam Date: 10/04/2022 11:30 AM Exam Location: [facility] Patient Status: Inpatient Admit Date: 10/02/2022 Staff Ordering Physician: Tal Mackey NP Plaster Mixer: Allyson Castañeda RDCS Attending Provider: Young Oneill MD Referring Physician: Narendra FLORES; Exam Type: CA echo doppler color flow Study Info Indications - Tachycardia Complete two-dimensional, color flow and Doppler transthoracic echocardiogram is performed. Summary 1. Complete two-dimensional, color flow and Doppler transthoracic echocardiogram is performed. 2. Left ventricular chamber dimension is normal. 3. Left ventricular systolic function is normal, estimated at 60-65%. 4. There is mild concentric increased left ventricular wall thickness. 5. The left ventricular diastolic function is normal. 6. E/e' 7 is not elevated. 7. There is trace tricuspid valve regurgitation. Left Ventricle E/e' 7 is not elevated. Left ventricular chamber dimension is normal. Left ventricular systolic function is normal, estimated at 60-65%. There is mild concentric increased left ventricular wall thickness. The left ventricular diastolic function is normal. Right Ventricle Right ventricular systolic function is normal and with normal TAPSE 2.1 cm. Right ventricular chamber dimension is normal. Left Atria Left atrial chamber dimension is normal. Right Atria Right atrial chamber dimension is normal. Aortic Valve The aortic valve is trileaflet. There is no aortic valve stenosis. There is no aortic valve regurgitation. Pulmonic Valve There is no pulmonic regurgitation. Mitral Valve There is no mitral valve stenosis. There is no mitral valve regurgitation. Tricuspid Valve RVSP is not calculated due to an inadequate TR jet. There is trace tricuspid valve regurgitation. Pericardium/Pleural There is no pericardial effusion. Inferior Vena Cava Normal inferior vena cava with >50% collapse upon inspiration consistent with normal right atrial pressure, 5 mmHg. Aorta The aortic root size at the sinus of Valsalva is normal. Left Ventricular Outflow Tract Name Value Normal LVOT 2D LVOT Diameter 2.3 cm LVOT Doppler LVOT Peak Velocity 99 cm/s LVOT Peak Gradient 4 mmHg LVOT Mean Gradient 2 mmHg LVOT VTI 19 cm LVOT VTI/AV VTI Ratio 0.9 LVOT Stroke Volume 77 ml Mitral Valve Name Value Normal MV Doppler MV Decel [place] 402 cm/s2 MV PHT 59 ms MV Area (PHT) 3.7 cm2 4.0-5.0 MV Diastolic Function
[2022-10-04] MEDS: hydroCHLOROthiazide 12.5 MG CAPSULE PO (08:55)
[2022-10-04] MEDS: PANTOPRAZOLE 40 MG TABLET PO ×2 (08:55→21:07)
[2022-10-04] MEDS: ENOXAPARIN 40 MG/0.4 ML SYRINGE SUB-Q (08:55)
[2022-10-04] MEDS: ATORVASTATIN 10 MG TABLET PO (08:55)
[2022-10-04] MEDS: chlordiazePOXIDE (*CRX) 10 MG CAPSULE PO ×2 (08:55→21:06)
[2022-10-04] MEDS: LOSARTAN POTASSIUM 50 MG TABLET PO (08:55)
--- NOTE | 2022-10-04 08:58 | WPDPN ---
Progress Note: A&P Assessment and Plan (1) CAP (community acquired pneumonia): Code(s): J18.9 - Pneumonia, unspecified organism Status: Acute Assessment and Plan: Patient was given a dose of Rocephin and azithromycin in the emergency room. Will continue with current regimen and monitor patient. Patient has no leukocytosis noted. Patient will need a follow-up CT scan to evaluate nodules that were noted on this CT scan. (2) Asthma: Code(s): J45.909 - Unspecified asthma, uncomplicated Status: Acute Assessment and Plan: Patient quit taking his Breo inhaler approximately 1 month ago and since that time has been hospitalized twice. At this point time will place patient on inhaled corticosteroid via nebulizer and continue with q.6 hours DuoNebs. Will also continue with IV Solu-Medrol. Patient will need to follow up with pulmonology once he has improved. Patient will need a full pulmonary function test. Patient does have a high-resolution CT scan performed in 2019 that did show either mild emphysema or honeycombing of the lungs which may be indicative of idiopathic pulmonary fibrosis. Patient also had nodules noted on CT scan performed during this admission that need to be re-evaluated in 3 months for resolution or persistence. Did discuss in depth with patient the need to take his medications as ordered and patient states that he is in agreement to take his Breo inhaler upon discharge. Patient was on 200/25 mcg once daily. Also did discuss with patient he will need to be seen by pulmonology after discharge. Patient verbalized understanding and stated that his brother who is a method consultant was assisting him in finding a carton stenciler. Discussed compliance with patient. (3) Alcohol use: Code(s): Z78.9 - Other specified health status Status: Acute Assessment and Plan: Patient states he does drink a 6 pack of beer daily. Patient states that he does not believe he has ever gone through withdrawal as, but he typically has not gone without drinking. Patient is tachycardic and diaphoretic at times so will place patient on CIWA protocol, as well as routine Librium and have p.r.n. Ativan available if patient were to score high enough on the CIWA protocol. Subjective Date/time seen: 10/04/22 08:58 Interval history: Patient seems to be breathing a lot better oxygen has just been removed and patient is breathing fairly well. Patient is schedue to have a Echo completed to day and we will monitor on how well he does today and we will plan on possible discharge in the morning. Patient will continue with his breathing treatement and steroids. Patient WBC are elevated may be due to steroids. Patient has displayed no s/s of infection. discussed compliance with patient today Exam Narrative: Constitutional: Patient is well-nourished in no acute distress. Patient is alert and oriented x3 HEENT: Moist mucous membranes. No scleral icterus. No lymphadenopathy. Neck: No carotid bruits noted no JVD noted Lungs: Lung sounds are decreased with expiratory wheezes noted bilaterally upon auscultation. No accessory muscle use. No rhonchi or rales noted. Cardiovascular: Apical pulse is regular rhythm and tachycardic. S1-S2 noted, no S3 or S4 noted. No gallops, murmurs, or rubs noted. EKG shows a sinus tachycardia. Abdomen: Soft, round, and nontender. No palpable masses. Extremities: No edema. Nontender. Skin: No rashes or lesions. Warm and diaphoretic at times. Skin is intact. Neurological: No focal neurological deficits. Cranial nerves II-XII grossly intact. Psychiatric: Cooperative, appropriate mood, and affect Objective Data Vital Signs Vital Signs: Vital Signs - 24 hr 10/03/22 09:07 10/03/22 09:34 10/03/22 10:11 Temperature Pulse Rate 117 H 117 H 110 H Pulse Rate [NIBP] Respiratory Rate 18 18 Blood Pressure Pulse Oximetry 94 94 Oxygen Delivery Oxygen Flow Rate 3
[2022-10-04] MEDS: BENZONATATE 100 MG CAPSULE PO (10:41)
--- NOTE | 2022-10-04 11:42 | PC.NURSE ---
ECHO being completed
[2022-10-04] MEDS: AZITHROMYCIN 500 MG/NS 250 ML 500 MG/250 ML BAG 250 MG IVPB (15:53)
[2022-10-04] MEDS: clonazePAM (*CRX) 0.5 MG TABLET 1 MG PO (21:06)
[2022-10-04] MEDS: rOPINIRole HCL 1 MG TABLET 2 MG PO (21:07)
[2022-10-04] MEDS: MONTELUKAST SODIUM 10 MG TABLET PO (21:07)
[2022-10-05] VITALS (7 sets, daily range): BP systolic 148–154; BP diastolic 69–96; PULSE 88–117; RESP 16–20; TEMP 36.8–37.1; O2SAT 94–97
[2022-10-05] MEDS: IPRATROPIUM 0.5 MG/ALBUTEROL SULFATE 2.5 MG AMPUL.NEB 3 ML INHALATION ×2 (00:43→05:58)
[2022-10-05 05:42] LABS: Basophils Absolute Auto 0.03 K/mm3 (0.00-0.10); Basophils Percent Auto 0.2 % (0.0-1.0); Eosinophils Absolute Auto 0.01 K/mm3 (0.02-0.50); Eosinophils Percent Auto 0.1 % (1.0-6.0); Hematocrit 42.7 % (40.0-54.0); Hemoglobin 14.2 g/dL (14.0-18.0); Immature Granulocyte Absolute 0.13 K/mm3 (0.00-0.00); Immature Granulocyte Percent A 0.8 % (0.0-0.0); Lymphocytes Percent Auto 9.9 % (18.0-42.0); Mean Corpuscular HGB Conc 33.3 g/dL (32.0-36.0); Mean Corpuscular Hemoglobin 28.2 pg (27.0-31.0); Mean Corpuscular Volume 84.9 fL (78.0-102.0); Mean Platelet Volume 10.4 fl (8.7-11.0); Monocytes Absolute Auto 1.38 K/mm3 (0.10-0.90); Monocytes Percent Auto 8.6 % (2.0-11.0); Neutrophils Percent Auto 80.4 % (50.0-70.0); Platelet Count Result 308 K/mm3 (150-420); Red Blood Count 5.03 M/mm3 (4.70-6.10); Red Cell Distribution Width 12.9 % (11.6-14.4); White Blood Count 16.1 K/mm3 (4.8-10.8)
[2022-10-05 05:53] LABS: Anion Gap 9 mmol/L (8-16); Blood Urea Nitrogen 27 mg/dL (7-18); Calcium 8.9 mg/dL (8.5-10.1); Carbon Dioxide 29 mmol/L (21-32); Chloride 102 mmol/L (98-108); Estimated CRCL calculation 73 ml/min; Estimated Glomerular Filt Rate > 60; Glucose 114 mg/dL (70-99); Osmolality Calculated 296 mOsm/kg (285-295); Potassium 3.6 mmol/L (3.5-5.1); Sodium 140 mmol/L (136-145)
[2022-10-05] MEDS: BUDESONIDE RESPULE NEB 0.5 MG/2 ML AMP INHALATION (05:57)
--- NOTE | 2022-10-05 06:30 | PM.DS ---
DS: Admitting Diagnosis Discharge Date 10/05/22 0804 Admitting Diagnosis Community acquired PNA DS: Discharge Diagnosis Discharge Diagnosis (1) CAP (community acquired pneumonia): Qualifiers: Laterality: unspecified laterality Qualified Code(s): J18.9 - Pneumonia, unspecified organism Code(s): J18.9 - Pneumonia, unspecified organism Status: Acute Assessment and Plan: Rocephin and azithromycin continued from the ED.? CT chest noted bilateral lower lobe PNA, ground glass opacities WBC stable at time of admission, trend WBC as indicated follow-up CT scan to evaluate nodules that were noted on this CT scan. Transition to PO Augmentin Trend respiratory status (2) Asthma: Qualifiers: Asthma complication type: unspecified Asthma persistence: unspecified Asthma severity: unspecified severity Qualified Code(s): J45.909 - Unspecified asthma, uncomplicated Code(s): J45.909 - Unspecified asthma, uncomplicated Status: Acute Assessment and Plan: Patient quit taking his Breo inhaler approximately 1 month ago and since that time has been hospitalized twice.? Started inhaled corticosteroid via nebulizer and continue with q.6 hours DuoNebs.? W follow up with pulmonology once he has improved.? High-resolution CT scan performed in 2019 that did show either mild emphysema or honeycombing of the lungs which may be indicative of idiopathic pulmonary fibrosis.? nodules noted on CT scan performed during this admission that need to be re-evaluated in 3 months for resolution or persistence.? Discuss in depth with patient the need to take his medications as ordered and patient states that he is in agreement to take his Breo inhaler upon discharge.? Patient was on 200/25 mcg once daily.? Also did discuss with patient he will need to be seen by pulmonology after discharge.? Patient verbalized understanding and stated that his brother who is a wheat cleaner was assisting him in finding a line maintainer. Discussed compliance with patient. (3) Alcohol use: Code(s): Z78.9 - Other specified health status Status: Acute Assessment and Plan: Cessation education given (4) Pulmonary nodules: Code(s): R91.8 - Other nonspecific abnormal finding of lung field Status: Acute Assessment and Plan: Seen on the CT Will need to follow up with pulmonology outpatient Will need a repeat chest CT in 3 months DS: Summary Hospital Course Hospital Course: patient is a 46-year-old male with past medical history of hyperlipidemia, anxiety, asthma who presented to the ED with complaints of shortness of breath for 2 days. Patient was noted to have a cough, wheezing and shortness of breath with any type of activity prior to entering the hospital. He did require 3 L nasal cannula which has been weaned to room air. It was noted the patient is not compliant with his inhalers which has been educated multiple times about continuing medications as prescribed. Patient has been on IV ceftriaxone and azithromycin since admission. Currently he is walking around and pacing the halls. He is doing well and is stable for discharge at this time. He will need to follow up with pulmonology outpatient. He has been given instructions and has agreed to the current plan. He denies any current chest pain, nausea, vomiting, diarrhea, or constipation. He will transition to amoxicillin-clavulanate BID. Currently he is stable for discharge and will be discharged home. Status at Discharge Functional status at discharge: independent ambulation Overall status at discharge: patient is progressing back to baseline Time Spent with Patient Time attestation: Total time spent providing and/or coordinating discharge services: 48 minutes Time spent: Greater than 30 minutes Specific discharge activities: Diagnostic testing, chart review, developing a treatment p
--- NOTE | 2022-10-05 08:04 | PM.DS ---
DS: Admitting Diagnosis Discharge Date September Admitting Diagnosis Community acquired pneumonia DS: Discharge Diagnosis Discharge Diagnosis Plan -Discharge home with Amoxicillin-clavulanate 875 mg/125 mg by mouth twice a day for 7 day course. Please take ALL of your antibiotics. Do not stop taking them even if you are feeling better. Stopping antibiotics mid-course leads to antibiotic resistance and the likelihood that the same antibiotic might not work for you later. -Continue to take your home inhalers. You MUST take your Breo inhaler and montelukast. You need this to keep you from having recurrent COPD exacerbations. -Should you develop SOB, CP, worsening cough, increased sputum production, fever or chills please come back to the hospital. It was a pleasure taking care of you. Thank you for choosing [facility]. DS: Summary Hospital Course Hospital Course: You were admitted to the hospital after presenting with cough, shortness of breath, and increase in wheezing. We admitted you with the diagnosis of community acquired pneumonia. You received IV antibiotics and IV steroids and your symptoms improved. You now are not requiring oxygen, are able to walk the halls with out shortness of breath, and your lung sounds are clear without wheezes. You WBC count is still slightly elevated however you have been receiving IV steroids so this is likely related to the medications as your symptoms have improved. We will put you on oral antibiotics Amoxicillin-clavulanate 875 mg-125 mg by mouth twice a day for 7 days. You may start your oral antibiotics tomorrow (Tuesday, October 06). You will complete them on October 12. Please take all of the antibiotics. We have also sent refills for your home medications for COPD and HTN. It is recommended that you follow up with your PCP in 1 weeks time. Please take this discharge paperwork with you so they know what you received while in the hospital. Status at Discharge Cognitive/behavioral status at discharge: independent Time Spent with Patient Time attestation: Total time spent providing and/or coordinating discharge services: 38 minutes Exam Narrative: General: well appearing, well developed, appears stated age. Neuro: Alert and orientated x 4. PERRLA. Cranial nerves 2-12 intact without focal deficit. HEENT: normocephalic, atraumatic. Mucous membranes moist. Neck supple without JVD or lymphadenopathy. Respiratory: clear to auscultation bilaterally. No rales/rhonic/wheezes. Cardiovascular: Regular rate and rhythm, normal S1-S2 upon auscultation. No murmurs, rubs, or clicks. PMI is nondisplaced. Abdomen: Soft, flat, non-distended and non-tender. Bowel sounds present to all four quadrants. Extremities: No cyanosis, clubbing, or edema present. Pulses are palpable 2/2. Active ROM to all four extremities. Skin: Warm, dry, and intact, without rash, erythema, or lesion. Psych: pleasant, cooperative, normal speech, normal affect. DS: Data Data Completed and Pending Pending studies at discharge: Ur L pneumophila Ag pending Urine Pneumococcal Ag pending Labs on day of discharge: Labs from last 24 hours 10/05/22 10/03/22 05:36 05:58 WBC 16.1 H RBC 5.03 Hgb 14.2 Hct 42.7 MCV 84.9 MCH 28.2 MCHC 33.3 RDW 12.9 Plt Count 308 MPV 10.4 Immature Gran % (Auto) 0.8 H Neut % (Auto) 80.4 H Lymph % (Auto) 9.9 L [place] % (Auto) 8.6 Eos % (Auto) 0.1 L Baso % (Auto) 0.2 Lymph # (Auto) 1.60 [place] # (Auto) 1.38 H Eos # (Auto) 0.01 L Baso # (Auto) 0.03 Abs Immat Gran (auto) 0.13 H Absolute Neuts (auto) 13.0 H Absolute Nucleated RBC 0.00 Nucleated RBC % 0.0 Sodium 140 Potassium 3.6 Chloride 102 Carbon Dioxide 29 Anion Gap 9 BUN 27 H Creatinine 0.99 Estim Creat Clear Calc 73 Estimated GFR > 60 Glucose 114 H Calculated Osmolality 296 H Calcium 8.9 Ref Lab Test Name Pending Ref L
[2022-10-05] MEDS: ENOXAPARIN 40 MG/0.4 ML SYRINGE SUB-Q (08:49)
[2022-10-05] MEDS: chlordiazePOXIDE (*CRX) 10 MG CAPSULE PO (08:51)
[2022-10-05] MEDS: PANTOPRAZOLE 40 MG TABLET PO (08:51)
[2022-10-05] MEDS: hydroCHLOROthiazide 12.5 MG CAPSULE PO (08:51)
[2022-10-05] MEDS: LOSARTAN POTASSIUM 50 MG TABLET PO (08:51)
[2022-10-05] MEDS: ATORVASTATIN 10 MG TABLET PO (08:51)
[2022-10-05] MEDS: AZITHROMYCIN 500 MG/NS 250 ML 500 MG/250 ML BAG 250 MG IVPB (09:29)
--- NOTE | 2022-10-05 13:33 | PC.NURSE ---
1210 dc instructions went over with him. voices an understanding. rider is here. ambulated out. declined wc exit.
[2022-10-06 21:26] LABS: Pneumococcal Antigen Urine Not Detected (Not Detected)
[2022-10-08 02:19] LABS: Legionella pneumophila Ag Ur Not Detected (Not Detected)
--- NOTE | 2022-10-08 14:36 | PC.NURSE ---
Pt states he received and understood the discharge instructions. Pt also states his care was awesome, the girls did great .
[2022-10-13 07:12] LABS: Reference Lab Test Name PROCALCITONIN
--- NOTE | 2022-10-14 07:51 | PC.NURSE ---
Due to computer issues on this day, Azithromycin 500mg was started at 0900 and ended at 1100 and Ceftriaxone was started at 1105 and ended at 1135 and was unable to be charted in JUN.
== END 2022-10-05 12:10 | disposition home or self-care (01) | DRG 195 ==
LOC: CHSED 15:40 → CHS2ND 15:48
PROVIDERS: Nurse Practitioner Adult Health; Admitting Provider Internal Medicine; Emergency Provider Emergency Medicine; PCP Internal Medicine; Visit Provider Internal Medicine
DX: J18.9 Pneumonia, unspecified organism (principal); J45.909 Unspecified asthma, uncomplicated; J96.91 Respiratory failure, unspecified with hypoxia; K21.9 Gastro-esophageal reflux disease without esophagitis; Z20.822 Contact with and (suspected) exposure to COVID-19; Z79.899 Other long term (current) drug therapy; I10 Essential (primary) hypertension; E78.5 Hyperlipidemia, unspecified; R91.8 Other nonspecific abnormal finding of lung field; F10.90 Alcohol use, unspecified, uncomplicated; Z91.148 Patient's other noncompliance with medication regimen for other reason
CPT/HCPCS: 36415; 71045; 71260; 80048; 80053; 80307; 83735; 84145; 84484; 85025; 85610; 85730; 87449; 87637; 87899; 93005; 93306; 93308; 94640; A9270; J0456; J0696; J1100; J1650; J2930; J3475; J7030; Q9967

== ENCOUNTER 2023-01-21 10:00 | Outpatient (CLI) | payer BC, SELFPAY ==
--- NOTE | ~2023-01-21 | XR_ITS ---
Clinical Indication: Cough, shortness of breath, lung nodule PA and lateral views of the chest: Comparison: 10/02/2022 Findings: The lungs are clear, without evidence of focal consolidation or pleural effusion. Cardiome diastinal silhouette is within normal limits. Bones and soft tissues are unremarkable. Impression: Clear lungs radiographically. Small nodules reported on prior chest CT dated 10/02/2022 are not apprec iated radiographically. Chest CT should be strongly considered to better assess for interval resoluti on or persistence of the previously identified pulmonary nodules. Reviewed, dictated and finalized at [facility]. Impression: Clear lungs radiographically. Small nodules reported on prior chest CT dated are not appreciated radiographically. Chest CT should be strongly consi dered to better assess for interval resolution or persistence of the previously identified pulmonary nodules.
--- NOTE | 2023-01-21 14:41 | WPDPFTINT ---
PFT Procedure Performed PFT Procedure Performed Spirometry with Pre/Post Bronchodilator Plethysmography (Lung Vol) Diffusing Cap (DLCO) PFT Interpretation DOS: 01/21/2023 REQUESTING: Dr. Jefry Hardy REASON FOR TESTING: Shortness of breath PULMONARY FUNCTION TESTS Results are reliable and reproducible, however there were only 2 flow volume loops to review. The patient tried to perform the flow volume loops, however could not get the hang of it beyond 2 loops. Spirometry: The pre- bronchodilator FEV1 is 2.96 L, 86% predicted, normal. The pre-bronchodilator FVC is 4.02 L, 93%, normal. The FEV1/FVC ratio is 74%, normal. After bronchodilator administration, there is a 5% drop in the FEV1, 2.81 L, 82% predicted, normal. After bronchodilator, there is a 6% drop in the FEV1, 3.78 L, 87% predicted, normal. The ratio post-bronchodilator remains stable, 74%. Lung volumes: The total lung capacity is 5.55 L, 88% predicted, normal. The residual volume is 1.53 L, 75% predicted, normal. The RV / TLC ratio is 28%, not elevated. There is no hyperinflation, no restriction, no air trapping. Airway resistance 212%. Diffusion: DLCO is 21.1, 88% predicted, normal. DLCO /VA is 4.15, 101%, normal. Flow volume loop: There were only 2 complete flow volume loops. ATS guidelines states that 3 reproducible flow volume loops needs to be reviewed. His flow volume loop does not show a specific abnormality. It suggests suboptimal performance. IMPRESSION: This PFT shows normal spirometry, no response to bronchodilator, normal lung volumes, normal diffusion. No prior studies to compare. Lack of response to bronchodilator should not preclude use if clinically indicated. Tiffany Alfaro MD
== END 2023-01-21 10:01 | disposition home or self-care (01) ==
LOC: CHSLAB 10:06 → CHSCARD 10:10
PROVIDERS: PCP Internal Medicine
DX: J45.909 Unspecified asthma, uncomplicated (principal); R91.8 Other nonspecific abnormal finding of lung field
CPT/HCPCS: 71046; 94060; 94726; 94729

== ENCOUNTER 2024-08-21 15:42 | Outpatient (CLI) | payer BC, SELFPAY ==
--- NOTE | ~2024-08-21 | XR_ITS ---
XR pelvis 1-2V 08/21/2024 16:07 Indication: Low back pain and pelvic pain Procedure: AP pelvis Comparison: No prior studies for comparison. Findings: Pelvic rings intact. Mild osteoarthritis of the hips. No acute fracture or traumatic malali gnment. Sacral foramen are symmetric. There are surgical clips overlying the right pelvis. No focal s oft tissue abnormality. Impression: 1: Mild symmetric osteoarthritis of the hips. Reviewed, dictated and finalized at location A. Impression: 1: Mild symmetric osteoarthritis of the hips.
--- NOTE | ~2024-08-21 | XR_ITS ---
XR lumbar spine 2-3V 08/21/2024 16:07 Indication: Low back pain and pelvic pain Procedure: 3 views lumbar spine Comparison: No prior studies for comparison. Findings: Vertebral body heights are maintained. No fracture, subluxation or dislocation. No evidence for spondylolysis or spondylolisthesis. Pedicles intact. Sacral foramen are symmetric. Impression: 1: No significant abnormality of the lumbar spine. Reviewed, dictated and finalized at location A. Impression: 1: No significant abnormality of the lumbar spine.
--- OUTSIDE RECORDS SUMMARY | 2024-08-21 15:49 | XMS_ITS | Data Portability ---
Author Organization [place] [facility], [address] [place] [address] [place] Address [address] [place] [address] Assessment No assessment recorded. Plan of Treatment Reminders Order Date Submit Date Provider Last Modified By Organization Details Last Modified Time Details Appointments Imaging 5.PRO 2024 01:45P M Radiology Not available Not available Not available Pulmonar y Function Test.PRO 2024 02:15P M Pulmonary Diseases & Sleep Medicine Not available Not available Not available Establis hed Patient 15.EST 2024 02:45P M Dr. Jefry Hardy Not available Not available Not available Lab None recorded . Referral None recorded . Procedures None recorded . Surgeries None recorded . Imaging None recorded . Medication Orders albutero l sulfate HFA 90 mcg/actu ation aerosol inhaler [address] [id number], [address] [place], [place], [id number], 05/18/2024 16:21:01 Trelegy Ellipta 200 mcg-62.5 mcg-25 mcg powder for inhalati on 2024 025 [email or web address] [facility]700, [address] [place], [place], [id number], 05/18/2024 16:21:01 Patient TargetsNo targets recorded. Patient InstructionsNo instructions recorded. Reason for Referral None Reported. Results Created Date Observation Date Name Description Value Unit Range Abnormal Flag Note LastModifiedBy Organization Detail LastModifiedTime 05/18/1905/18/2024 CBC w/ auto diff CBC with differential Not Available [facility] [address] [place] [address], [id number], 05/18/2024 16:24:25 05/18/19 25 05/18/2024 CBC w/ auto diff WBC 8.8 K/uL 4.8- 10.8 Not Available [facility] [address] [place] [address], [address], 05/18/2024 16:24:25 05/18/19 25 05/18/2024 CBC w/ auto diff RBC 5.94 M/uL 4.70-6 .10 Not Available [facility] [address] [place] [address], [address], 05/18/2024 16:24:25 05/18/19 25 05/18/2024 CBC w/ auto diff HGB 16.8 g/dL 14.0-1 8.0 Not Available [facility] [address] [place] [address], [address], 05/18/2024 16:24:25 05/18/19 25 05/18/2024 CBC w/ auto diff HCT 50.3 % 42.0-5 2.0 Not Available [facility] [address] [place] [address], [address], 05/18/2024 16:24:25 05/18/19 25 05/18/2024 CBC w/ auto diff MCV 84.7 fL 80.0-9 4.0 Not Available [facility] [address] [place] [address], [address], 05/18/2024 16:24:25 05/18/19 25 05/18/2024 CBC w/ auto diff MCH 28.3 pg 27.0- 31.0 Not Available [facility] [address] [place] [address], [address], 05/18/2024 16:24:25 05/18/19 25 05/18/2024 CBC w/ auto diff MCHC 33.4 g/dL 32.0-3 6.0 Not Available [facility] [address] [place] [address], [address], 05/18/2024 16:24:25 05/18/19 25 05/18/2024 CBC w/ auto diff RDW-SD 40.8 fL 35.1 - 46.3 Not Available [facility] [address] [place] [address], [address], 05/18/2024 16:24:25 05/18/19 25 05/18/2024 CBC w/ auto diff plt 296 K/uL 130-40 0 Not Available [facility] [address] [place] [address], [address], 05/18/2024 16:24:25 05/18/19 25 05/18/2024 CBC w/ auto diff MPV 11.6 fL 7.5- 11.8 Not Available [facility] [address] [place] [address], [address], 05/18/2024 16:24:25 05/18/19 25 05/18/2024 CBC w/ auto diff lindsey% 54.4 % not estab Not Available [facility] [address] [place] [address], [address], 05/18/2024 16:24:25 05/18/19 25 05/18/2024 CBC w/ auto diff lym% 17.7 % not estab Not Available [facility] [address] [place] [address], [address], 05/18/2024 16:24:25 05/18/19 25 05/18/2024 CBC w/ auto diff mono% 13.4 % not estab Not Available [facility] [address] [place] [address], [address], 05/18/2024 16:24:25 05/18/19 25 05/18/2024 CBC w/ auto diff eos% 11.9 % not estab Not Available [facility] [address] [place] [address], [address], 05/18/2024 16:24:25 05/18/19 25 05/18/2024 CBC w/ auto diff baso% 2.3 % not estab Not Available [facility] [address] [place] [address], [address], 05/18/2024 16:24:25 05/18/19 25 05/18/2024 CBC w/ auto diff abs lindsey 4.8 K/uL 1.5-7. 5 Not Available [facility] [address] [place] [address], [address], 05/18/2024 16:24:25 05/18/19 25 05/18/2024 CBC w/ auto diff abs lym 1.6 K/uL 1.2-3. 4 Not Available [facility] [address] [place] [address], [address], 05/18/2024 16:24:25 05/18/19 25 05/18/2024 CBC w/ auto diff abs mono 1.2 K/uL 0.1-1. 0 high Not Available [facility] [address] [place] [address], [address], 05/18/2024 16:24:25 05/18/19 25 05/18/2024 CBC w/ auto diff abs eos 1.1 K/uL 0.0-0. 7 high Not Available [facility] [address] [place] [address], [address], 05/18/2024 16:24:25 05/18/19 25 05/18/2024 CBC w/ auto diff abs baso 0.2 K/uL 0.0-0. 2 Not Available [facility] [address] [place] [address], [address], 05/18/2024 16:24:25 05/18/19 25 05/18/2024 CBC w/ auto diff imm. gran % 0.3 % 0-5 Not Available [facility] [address] [place] [address], [address], 05/18/2024 16:24:25 05/18/19 25 05/18/2024 CBC w/ auto diff NRBC % 0.0 % 0.0-0. 2 Not Available [facility] [address] [place] [address], [address], 05/18/2024 16:24:25 05/18/19 25 05/18/2024 PFT No observ ation record ed. [email or web address] [facility] [address] , [place], [address], 05/18/2024 15:46:25 05/18/19 25 05/18/2024 elect rocar diogr am, routi ne ECG, 12 leads min No observ ation record ed. [email or web address] [facility] [address] [address], [place], [address], 05/31/2024 17:51:46 05/18/19 six minut e walk test* No observ ation record ed. BARCODE Not Available 2024 18:48:36 05/19/19 25 05/18/2024 elect rocar diogr am, routi ne ECG, 12 leads min No observ ation record ed. [email or web address] [facility] [address] [address], [place], [address], 05/21/2024 09:42:07 Result Notes None recorded. Problems Name Problem SNOMED Code Status Onset Date Resolution Date Notes Provider Name and Address Organization Details Recorded Time Hypersensitivi ty pneumonitis 83392657 Active 2024 Landon Hardy MD [address] [place] [address], [id number] , [facility] 17:04:09 Moderate persistent asthma 673483361 Active 2024 Landon Hardy MD [address] [place], [address], [facility] 5 14:47:22 Computed tomography result abnormal 095560972 Active 2024 Landon Hardy MD [address] , [place], [address], [facility] 5 14:47:52 Tachycardia 4556591 Active 2024 Landon Hardy MD [address] , [place], [address], [facility] 5 15:02:52 Harmful pattern of use of alcohol 17908351 Active 2024 Landon Hardy MD [address] [facility], [place], [address], [facility] 5 15:02:57 Problem Notes None recorded. Procedures Surgical History None recorded. Imaging Results Imaging Date Name Status [facility]Modified by [facility] Details LastModified Time 05/18/2024 PFT completed [email or web address] [facility] [address] , [place], [address], 05/18/2024 15:46:25 05/18/2024 electrocardi ogram, routine ECG, 12 leads min completed [email or web address] [facility] [address] [address], [place], [address], 05/31/2024 17:51:46 05/18/2024 six minute walk test* completed BARCODE Information not available 05/18/2024 18:48:36 05/18/2024 electrocardi ogram, routine ECG, 12 leads min completed [email or web address] [facility] [address] [address], [place], [address], 05/21/2024 09:42:07 Procedure Notes None recorded. Medical Equipment None Reported. Allergies Allergen ID Allergen Name Allergen Category Reaction Reaction Severity Criticality Documentation Date Start Date Code Code System Note Provider Name and Address Organization Details Recorded Time 800308 Biaxin medicatio n Not available Not available Not available 05/16/20232007 9 RxNorm Comme nt: Other Robina cha ns: FLORENCE MCCALLUM, [facility] NFOTM P 2007 9:17A M _EXTR INSIC ALLER GIES_ ; ; Not Available [facility] 22:07:06 Medications Name Sig Start Date Stop Date Status Note LastModified by Organization Details LastModified Time cetirizine 10 mg tablet Take 1 tablet every day by oral route. 2024 active Not Available Not Available Not Avai lable montelukast 10 mg tablet Take 1 tablet every day by oral route at bedtime. 2024 active Not Available Not Available Not Avai lable albuterol sulfate HFA 90 mcg/actuatio n aerosol inhaler INHALE 2 PUFFS BY MOUTH EVERY 4 TO 6 HOURS NEEDED 2024 active Not Available Not Available Not Avai lable Trelegy Ellipta 200 mcg-62.5 mcg-25 mcg powder for inhalation Inhale 1 puff every day by inhalation route for 30 days. 2024 active Not Available Not Available Not Avai lable Vitals Date Recorded Body height Body mass index (BMI) Body weight Oxygen saturation Oxygen saturation in Arterial blood by Pulse oximetry Systolic blood pressure Diastolic blood pressure Provider Name and Address Organization Details Last Updated DateTime 5 170.18 cm 25.7 kg/m2 14292.1 5 g 95 % 95 % 139 mm[Hg] 97 mm[Hg] [facility] 5 14:50:08 Date Recorded Heart rate Provider Name an d Address Organization Details Last Updated DateTime 05/18/2024 100 /min Landon Hardy MD [address] [place] [address], [id number] 05/18/2024 15:01:36 Social History None recorded. Functional Status None recorded. Mental Status None recorded. Family History Nothing Reported. Medical History No medical history recorded. Immunizations Vaccine Type Date Status Note Provider Nam e and Address Organization Details Recorded Time Influenza, MDCK, trivalent, PF 5 completed [facility] 05/18/2024 15:59:34 Pneumococcal conjugate PCV20, polysaccharide TAT931 conjugate, adjuvant, PF completed Germain Soto [facility] 05/18/2024 15:59:34 Past Encounters Encounter ID Performer Location Encounter Start Date Encounter Closed Date Diagnosis/Indication Diagnosis SNOMED-CT Code Diagnosis ICD10 Code Diagnosis Note [id number] Landon Hardy MD [facility] [address] [place] [address] 05/18/2024 13:54:08 05/18/2024 14:35:01 Hypersensitivity pneumonitis 73069652 J67.9 [id number] [address] Hardy MD [facility] ([place]) [address] [place] [address] 05/18/2024 13:55:09 05/18/2024 17:56:15 Moderate persistent asthma 110379680 J45.40 Symptoms are reasonably well-contr olled, but have advised him we need to monitor him quite closely. Will continue Trelegy for now and albuterol as needed. I am contemplat ing adding Biologics if he has more trouble in the spring and summer. Will get a CBC with silvestre al to see what his eosinophil counts are. Hypersensi tivity pneumonitis 97201069 J67.9 Will be due for a follow-up CT scan to reevaluate in October 2024. Computed t omography result abnormal 064549320 R93.89 Tachycardia 1582768 R00. 0 Will update an EKG. Harmful pa ttern of use of alcohol 88762925 F10.10 I have expressed concern that he is drinking too much alcohol. I suspect this may be the reason that he has tachycardi a, so have advised him to try to cut back. Vaccination needed [address] 79214 61994 Z23 Health Concerns Section Related Observation LastModified by Organization Detai ls LastModified Time None Recorded Concern Status LastModified by Organization Details LastModified Time None Recorded Advance Directives Directive None Recorded Payers Encounter Date Sequence Insurance Name Policy Number Policy Lyles Covered Member ID Lyles Member ID Guarantor Name 05/18/2024 1 [place] [id number] Eric Mittal [id number] Eric Zelayadarrenmaggy Notes Date Note Type Note Provider Name and Address Organization Details Recorded Time 05/18/2024 text/html Andrew returns today for previously diagnosed asthma and pneumonia. He is a non-smoker. I have not seen him since July 2023 and restarted him on Trelegy and he seemed to be doing better in terms of asthma control. He did have a CT scan in September 2022 he was found to have bilateral lower lobe interstitial infiltrates with some groundglass opacities. He also had some findings of pneumonia during the hospitalization for chest pain in January 2023. He does work as a nieto and some of the findings were worrisome for chronic hypersensitivity pneumonitis. At his last visit with me in July he was doing quite well and recommended we continue Trelegy and get a follow-up CT scan in [address] scan was reviewed and compared to previous imaging from January 2023 and there is very little change in the bilateral peripheral, subpleural infiltrates that favor the right lower lobe and right upper lobe laterally. He states that he feels like the Trelegy still helps him with his breathing. He has not had any recent exacerbations. He does use albuterol intermittently. He still struggling with drinking pretty heavily. He drinks between 6 and 12 beers a day. He states that he may have been drinking more at times. Landon Hardy MD [address] [facility], [place], [address], [place] [facility] 05/29/2024 17:04:27
--- OUTSIDE RECORDS SUMMARY | 2024-08-21 15:49 | XMS_ITS | Clinical Summary ---
Author Organization [facility] Address [address] [place] [address] Care Team Providers Care [employer] Name Role Phone Dori Pratt MD Primary Care Provider [phone] Social History Tobacco Use Types Packs/Day Years Used Date Smoking Tobacco: Never Assessed Sex and Gender Information Value Date Recorded Sex Assigned at Not on file Legal Sex Male 6:10 PM CDT Gender Identity Not on file Sexual Orientation Not on file Last Filed Vital Signs Vital Sign Reading Time Taken Comments Blood Pressure 122/74 11/22/2017 9:58 AM CDT Pulse 74 11/22/2017 9:58 AM CDT Temperature - - Respiratory Rate - - Oxygen Saturation - - Inhaled Oxygen Concentration - - Weight 87.5 kg (193 lb) 11/22/2017 9:58 AM CDT Height 167.6 cm (5' 6 ) 11/22/2017 9:58 AM CDT Body Mass Index 31.15 11/22/2017 9:58 AM CDT Plan of Treatment Health Maintenance Due Date Last Done Comments Colorectal Cancer Screening Colonoscopy (10 Years) 1973 Annual Physical 1976 Hepatitis C 12/24/1991 DTaP, Tdap and Td Vaccines ( 1 - Tdap) 1992 Hepatitis B Vaccines (1 of 3 - 19+ 3-dose series) 1992 COVID-19 Vaccine ( - 2023-2 5 season) 2023 Pneumococcal Vaccine: 50+ Ye ars (1 of 1 - PCV) 12/24/2023 Zoster Vaccines (1 of 2) 12/24/2023 Meningococcal B Vaccine Aged Out No l onger eligible based on patient's age to complete this topic Meningococcal Vaccine Aged Out No ghanshyam beatrice eligible based on patient's age to complete this topic RSV Immunizations Under 20 Months Aged Out No longer eligible based on patient's age to complete this topic Insurance [address] [place] [address] Care Teams [employer] Relationship Specialty Start Date End Date Dori Pratt MD [address] [place] [id number] PCP - General INTERNAL MEDICINE 04/21/18
[2024-08-21 17:17] LABS: Hematocrit 49.9 % (40.0-54.0); Hemoglobin 16.2 g/dL (14.0-18.0); Mean Corpuscular HGB Conc 32.5 g/dL (32-36); Mean Corpuscular Hemoglobin 27.7 pg (27.0-31.0); Mean Corpuscular Volume 85.3 fL (78.0-102.0); Mean Platelet Volume 11.3 fl (8.7-11.0); Platelet Count Result 372 K/mm3 (150-420); Red Blood Count 5.85 M/mm3 (4.70-6.10); Red Cell Distribution Width 13.1 % (11.6-14.4); White Blood Count 9.2 K/mm3 (4.8-10.8)
[2024-08-21 17:21] LABS: Add Urine Microscopic? YES; Appearance Urine Clear (Clear); Bilirubin Urine Negative (Negative); Blood Urine Negative (Negative); Color Urine Light Yellow (Yellow); Glucose Urine UA Negative (Negative); Ketones Urine Negative (Negative); Leukocyte Esterase Ur Negative (Negative); Nitrate Urine Negative (Negative); Protein Urine 2+ (Negative); Specific Grav Ur 1.025 (1.010-1.020); Urobilinogen Urine 0.2 mg/dL (0.2-1.0)
[2024-08-21 17:27] LABS: Bacteria Urine None seen /hpf; RBC Urine None seen /hpf (0-2); Squamous Epithelial Cell Urine Rare /hpf (Few); WBC Urine None seen /hpf (0-3)
[2024-08-21 17:47] LABS: Alanine Aminotransferase 29 U/L (16-63); Albumin Level 3.5 g/dL (3.4-5.0); Alkaline Phosphatase 77 U/L (46-116); Anion Gap 10 mmol/L (4-12); Aspartate Amino Transferase 23 U/L (15-37); Bilirubin,Total 0.4 mg/dL (0.00-1.00); Blood Urea Nitrogen 28 mg/dL (7-18); Calcium 9.1 mg/dL (8.5-10.1); Carbon Dioxide 28 mmol/L (21-32); Chloride 100 mmol/L (98-108); Cholesterol 271 mg/dL (0-200); Estimated Glomerular Filt Rate 59; Glucose 133 mg/dL (70-99); HDL Direct 61 mg/dL (40-60); LDL Cholesterol Calculated 156 mg/dL (<130); Osmolality Calculated 293 mOsm/kg (285-295); Potassium 4.3 mmol/L (3.5-5.1); Prostate Specific Antigen 1.7 ng/mL (< OR = 4.0); Sodium 138 mmol/L (136-145); Thyroid Stimulating Hormone 4.21 uIU/mL (0.36-3.74); Total Protein 7.5 g/dL (6.4-8.2); Triglycerides 268 mg/dL (0-150)
[2024-08-21 18:26] LABS: Erythrocyte Sedimentation Rate 11 mm/hr (0-15)
== END 2024-08-21 15:43 | disposition home or self-care (01) ==
LOC: CHSLAB 15:45
PROVIDERS: PCP Internal Medicine; Visit Provider Internal Medicine
DX: M54.50 Low back pain, unspecified (principal); I10 Essential (primary) hypertension; E78.2 Mixed hyperlipidemia; R10.2 Pelvic and perineal pain; N50.812 Left testicular pain; N50.811 Right testicular pain; M16.0 Bilateral primary osteoarthritis of hip
CPT/HCPCS: 36415; 72100; 72170; 80053; 80061; 81001; 84153; 84439; 84443; 85027; 85652; 86140; 87086; G0103

== ENCOUNTER 2024-08-28 12:58 | Outpatient (CLI) | payer BC, SELFPAY ==
--- NOTE | ~2024-08-28 | US_ITS ---
Thyroid ultrasound. Clinical History: Hypothyroid Findings: Real-time sonography of the thyroid gland was performed. The right lobe measures 3.6 x 1.3 x 2.0 cm. The left lobe measures 3.4 x 1.7 x 2.0 cm. The isthmus is 5 mm in AP diameter. No thyroid nodule seen. Impression: Unremarkable exam.. Reviewed, dictated and finalized at location . Impression: Unremarkable exam..
--- NOTE | ~2024-08-28 | US_ITS ---
TESTICULAR ULTRASOUND (Doppler ultrasound interrogation techniques used as needed for this exam.) Ordering provider: Dori Pratt MD History: . hypothyroidism, testicular pain . Comparison: None. FINDINGS: TESTICLES: Normal in size. The right measures 4.1x 2.8x 2.2 cm and the left measures 4.8x 2.8x 2.4 cm . Normal echogenicity bilaterally without mass lesion. Normal Doppler flow bilaterally. EPIDIDYMIDES: Normal in size. The right measures 0.81 cm and the left 0.98 cm. Normal echogenicity bi laterally. Increased blood flow in the left epididymis. Cyst is seen in the left epididymis measuring 0.5 x 0.5 cm. HYDROCELE: None. VARICOCELE: Right varicocele.. OTHER ABNORMALITY: None seen. IMPRESSION: Increased vascularity of the left epididymis suggestive of epididymitis. Left epididymal cyst. Right varicocele. Otherwise, normal testicular ultrasound. Reviewed, dictated and finalized at location A. IMPRESSION: Increased vascularity of the left epididymis suggestive of epididymitis. Left e pididymal cyst. Right varicocele. Otherwise, normal testicular ultrasound.
--- OUTSIDE RECORDS SUMMARY | 2024-08-28 13:08 | XMS_ITS | Data Portability ---
Author Organization [place] [facility], [address] [place] [address] [place] ([place]) Address [address] [place] [address] Assessment No assessment recorded. Plan of Treatment [...] 90 mcg/actu ation aerosol inhaler [address] [id number], [address] [place], [place], [id number], 05/18/2024 16:21:01 Trelegy Ellipta 200 mcg-62.5 mcg-25 mcg powder for inhalati on 2024 025 [email or web address] [id number], [address], [place], [id number], 05/18/2024 16:21:01 Patient TargetsNo targets recorded. Patient InstructionsNo instructions recorded. Reason for Referral None Reported. Results Created Date Observation Date Name Description Value Unit Range Abnormal Flag Note LastModifiedBy Organization Detail LastModifiedTime 05/18/1905/18/2024 CBC w/ auto diff CBC with differential Not Available [facility] [address] [place] [address], [id number], 05/18/2024 16:24:25 05/18/19 25 05/18/2024 CBC w/ auto diff WBC 8.8 K/uL 4.8- 10.8 Not Available [facility] [address] [place] [address], [address], 05/18/2024 16:24:25 05/18/19 25 05/18/2024 CBC w/ auto diff RBC 5.94 M/uL 4.70-6 .10 Not Available [facility] [address] [place] [address], [address], 05/18/2024 16:24:25 05/18/19 25 05/18/2024 CBC w/ auto diff HGB 16.8 g/dL 14.0-1 8.0 Not Available [facility] [address] [place] [address], [id number], 05/18/2024 16:24:25 05/18/19 25 05/18/2024 CBC w/ auto diff HCT 50.3 % 42.0-5 2.0 Not Available [facility] [address] [place] [address], [address], 05/18/2024 16:24:25 05/18/19 25 05/18/2024 CBC w/ auto diff MCV 84.7 fL 80.0-9 4.0 Not Available [facility] [address] [place] [address], [address], 05/18/2024 16:24:25 05/18/19 25 05/18/2024 CBC w/ auto diff MCH 28.3 pg 27.0- 31.0 Not Available [facility] [address] [place] [address], [id number], 05/18/2024 16:24:25 05/18/19 25 05/18/2024 CBC w/ auto diff MCHC 33.4 g/dL 32.0-3 6.0 Not Available [facility] [address] [place] [address], [address], 05/18/2024 16:24:25 05/18/19 25 05/18/2024 CBC w/ auto diff RDW-SD 40.8 fL 35.1 - 46.3 Not Available [facility] [address] [place] [address], [address], 05/18/2024 16:24:25 05/18/19 25 05/18/2024 CBC w/ auto diff plt 296 K/uL 130-40 0 Not Available [facility] [address] [place] [address], 217[address], 05/18/2024 16:24:25 05/18/19 25 05/18/2024 CBC w/ auto diff MPV 11.6 fL 7.5- 11.8 Not Available [facility] [address] [place] [address], 28[address], 05/18/2024 16:24:25 05/18/19 25 05/18/2024 CBC w/ auto diff lindsey% 54.4 % not estab Not Available [facility] [address] [place] [address], [address], 05/18/2024 16:24:25 05/18/19 25 05/18/2024 CBC w/ auto diff lym% 17.7 % not estab Not Available [facility] [address] [place] [address], [address], 05/18/2024 16:24:25 05/18/19 25 05/18/2024 CBC w/ auto diff mono% 13.4 % not estab Not Available [facility] [address] [place] [address], [address], 05/18/2024 16:24:25 05/18/19 25 05/18/2024 CBC w/ auto diff eos% 11.9 % not estab Not Available [facility] [address] [place] [address], [address], 05/18/2024 16:24:25 05/18/19 25 05/18/2024 CBC w/ auto diff baso% 2.3 % not estab Not Available [facility] [address] [place] [address], [address], 05/18/2024 16:24:25 05/18/19 25 05/18/2024 CBC w/ auto diff abs lindsey 4.8 K/uL 1.5-7. 5 Not Available [facility] [address] [place] [address], [address], 05/18/2024 16:24:25 05/18/19 25 05/18/2024 CBC w/ auto diff abs lym 1.6 K/uL 1.2-3. 4 Not Available [facility] [address] [place] [address], [address], 05/18/2024 16:24:25 05/18/19 25 05/18/2024 CBC w/ auto diff abs mono 1.2 K/uL 0.1-1. 0 high Not Available [facility] [address] [place] [address], [address], 05/18/2024 16:24:25 05/18/19 25 05/18/2024 CBC w/ auto diff abs eos 1.1 K/uL 0.0-0. 7 high Not Available [facility] [address] [place] [address], 10[address], 05/18/2024 16:24:25 05/18/19 25 05/18/2024 CBC w/ auto diff abs baso 0.2 K/uL 0.0-0. 2 Not Available [facility] [address] [place] [address], [address], 05/18/2024 16:24:25 05/18/19 25 05/18/2024 CBC w/ auto diff imm. gran % 0.3 % 0-5 Not Available [facility] [address] [place] [address], [address], 05/18/2024 16:24:25 05/18/19 25 05/18/2024 CBC w/ auto diff NRBC % 0.0 % 0.0-0. 2 Not Available [facility] [address] [place] [address], [address], 05/18/2024 16:24:25 05/18/19 25 05/18/2024 PFT No observ ation record ed. [email or web address] [facility] Only [facility] [address] , [place], [address], 05/18/2024 15:46:25 05/18/19 25 05/18/2024 elect rocar diogr am, routi ne ECG, 12 leads min No observ ation record ed. [facility] [address] [address], [place], [address], 05/31/2024 17:51:46 05/18/19 six minut e walk test* No observ ation record ed. BARCODE Not Available 2024 18:48:36 05/19/19 25 05/18/2024 elect rocar diogr am, routi ne ECG, 12 leads min No observ ation record ed. [email or web address] [facility] [address] [address], [place], [address], 05/21/2024 09:42:07 Result Notes None recorded. Problems Name Problem SNOMED Code Status Onset Date Resolution Date Notes Provider Name and Address Organization Details Recorded Time Hypersensitivi ty pneumonitis 00396515 Active 2024 Landon Hardy MD [address] [place] [address], [id number] , [facility] 17:04:09 Moderate persistent asthma 544890662 Active 2024 Landon Hardy MD [address] [place], [address], [facility] 5 14:47:22 Computed tomography result abnormal 419049717 Active 2024 Landon Hardy MD [address] , [place], [address], [facility] 5 14:47:52 Tachycardia 1036416 Active 2024 Landon Hardy MD [address] , [place], [address], [facility] 5 15:02:52 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 Procedures Surgical History None recorded. Imaging Results Imaging Date Name Status LastModified by [facility] Details LastModified Time 05/18/2024 PFT completed [email or web address] [facility] [address] , [place], [address], 05/18/2024 15:46:25 05/18/2024 electrocardi ogram, routine ECG, 12 leads min completed [facility] [address] [address], [place], [address], 05/31/2024 17:51:46 05/18/2024 six minute walk test* completed [facility] Information not available 05/18/2024 18:48:36 05/18/2024 electrocardi ogram, routine ECG, 12 leads min completed [email or web address] [facility] [address] [address], [place], [address], 05/21/2024 09:42:07 Procedure Notes None recorded. Medical Equipment None Reported. Allergies Allergen ID Allergen Name Allergen Category Reaction Reaction Severity Criticality Documentation Date Start Date Code Code System Note Provider Name and Address Organization Details Recorded Time 312739 Biaxin medicatio n Not available Not available Not available 05/16/20232007 9 RxNorm Comme nt: Other Robina cha ns: FLORENCE MCCALLUM, [facility] NFOTM P 2007 9:17A M _EXTR INSIC ALLER GIES_ ; ; Not Available [facility] 4 22:07:06 Medications Name Sig Start Date [...] Updated DateTime 5 170.18 cm 25.7 kg/m2 45635.1 5 g 95 % 95 % 139 mm[Hg] 97 mm[Hg] [facility] 5 14:50:08 Date Recorded Heart rate Provider Name an d Address Organization Details Last Updated DateTime 05/18/2024 100 /min Landon Hardy MD [address] [place] [address], [id number] 05/18/2024 15:01:36 Social History None recorded. Functional Status None recorded. Mental Status None recorded. Family History Nothing Reported. Medical History No medical history recorded. Immunizations Vaccine Type Date Status Note Provider Nam e and Address Organization Details Recorded Time Influenza, MDCK, trivalent, PF 5 completed [facility] 05/18/2024 15:59:34 Pneumococcal conjugate PCV20, polysaccharide OPY784 conjugate, adjuvant, PF 5 completed Germain Soto [facility] 05/18/2024 15:59:34 Past Encounters Encounter ID Performer Location Encounter Start Date Encounter Closed Date Diagnosis/Indication Diagnosis SNOMED-CT Code Diagnosis ICD10 Code Diagnosis Note [id number] Landon Hardy MD [facility] [address] [place] [address] 05/18/2024 13:54:08 05/18/2024 14:35:01 Hypersensitivity pneumonitis 64290737 J67.9 [id number] Landon Hardy MD [facility] ([place]) [address] [place] [address] 05/18/2024 13:55:09 05/18/2024 17:56:15 Moderate persistent asthma 176194834 J45.40 Symptoms are reasonably well-contr olled, but have advised him we need to monitor him quite closely. Will continue Trelegy for now and albuterol as needed. I am contemplat ing adding Biologics if he has more trouble in the spring and summer. Will get a CBC with silvestre al to see what his eosinophil counts are. Hypersensi tivity pneumonitis 84219047 J67.9 Will be due for a follow-up CT scan to reevaluate in October 2024. Computed t omography result abnormal 882170168 R93.89 Tachycardia 6649952 R00. 0 Will update an EKG. Harmful pa ttern of use of alcohol 55186705 F10.10 I have expressed concern that he is drinking too much alcohol. I suspect this may be the reason that he has tachycardi a, so have advised him to try to cut back. Vaccination needed [address] 23015 91823 Z23 Health Concerns Section Related Observation LastModified by Organization Detai ls LastModified Time None Recorded Concern Status LastModified by Organization Details LastModified Time None Recorded Advance Directives Directive None Recorded Payers Insurance Date Sequence Insurance Name Policy Number Policy Lyles Covered Member ID Lyles Member ID Guarantor Name 06/12/2024 1 [place] [id number] Eric Mittal [id number] Eric Zelayadarrenmaggy Notes Date Note Type [...] at times. Landon Hardy MD [address] [facility], [place], [address], [place] [facility] 05/29/2024 17:04:27
--- OUTSIDE RECORDS SUMMARY | 2024-08-28 13:08 | XMS_ITS | Clinical Summary ---
Author Organization [facility] Address [address] [place] [address] Care Team Providers Care Livestock Farm Manager Name Role Phone Dori Pratt MD Primary Care Provider [phone] Social History Tobacco Use Types Packs/Day Years [...] patient's age to complete this topic [place] [address] [place] [address] Care Teams Livestock Farm Manager Relationship Specialty Start Date End Date Dori Pratt MD [address] [place] [id number] PCP - General INTERNAL MEDICINE 04/21/18
== END 2024-08-28 12:59 | disposition home or self-care (01) ==
LOC: CHSIMG 12:59
PROVIDERS: PCP Internal Medicine; Visit Provider Internal Medicine
DX: E03.9 Hypothyroidism, unspecified (principal); N50.819 Testicular pain, unspecified; N50.3 Cyst of epididymis; I86.1 Scrotal varices
CPT/HCPCS: 76536; 76870; 93976